=== PATIENT | female | born 1935 | race Hispanic/Latino ===

== ENCOUNTER 2016-09-30 18:13 | Inpatient (IN) | payer MEDICARE, MEDICAID ==
[2016-09-30 18:14] VITALS: BMI 30.2
--- NOTE | 2016-09-30 18:38 | ED PDOC ---
Arrival/HPI - General Chief Complaint: Lower Extremity Problem/Injury Time Seen by Provider: 09/30/16 18:25 Historian: Patient - History of Present Illness Narrative History of Present Illness (Text): 09/30/16 18:35 81yo female with PMHx of hypertension and Diabetes who present to ED with complaint of LLE pain x 2weeks. States she was seen by her PMD and started on antibiotics for cellulitis. she finished the antibiotics yesterday without relieve. states pain is worse today. She denies fever, trauma, SOB, diaphoresis , chest pain, recent travel, fever, chills, any other complaint. Past Medical History - Provider Review Nursing Documentation Reviewed: Yes - Past Medical History Past Medical History: No Previous - Cardiac Hx Cardiac Disorders: Yes Hx Hypertension: Yes - Pulmonary Hx Respiratory Disorders: No - Neurological Hx Neurological Disorder: No - HEENT Hx HEENT Disorder: Yes (legally blind) Hx Cataracts: Yes (left eye sx 5 yrs ago) - Renal Hx Renal Disorder: Yes Hx Kidney Stones: Yes (2006 right side kidney stone) - Endocrine/Metabolic Hx Diabetes Mellitus Type 1: Yes - Hematological/Oncological Hx Blood Transfusions: No Hx Blood Transfusion Reaction: No - Integumentary Other/Comment: unable to asess at present time patient can't roll over due to left hip fx - Musculoskeletal/Rheumatological Hx Musculoskeletal Disorders: Yes Hx Falls: Yes (yrs ago fx r shoulder and today) Hx Fractures: Yes (LEFT HIP FX,FX RIGHT SHOULDER WITH TITANIUM PLATE) Hx Unsteady Gait: Yes Other/Comment: ROTATOR CUFF SX - Gastrointestinal Hx Gastrointestinal Disorders: Yes Hx Gastroesophageal Reflux: Yes - Genitourinary/Gynecological Hx Hematuria: Yes - Psychiatric Hx Psychophysiologic Disorder: Yes Hx Anxiety: No (Pt denies) Hx Depression: No (Pt denies) Hx Substance Use: No - Past Surgical History Past Surgical History: No Previous - Surgical History Hx Cataract Extraction: Yes Hx Cardiac Catheterization: Yes Hx Coronary Stent: Yes Hx Eye Surgery: Yes Hx Orthopedic Surgery: Yes - Anesthesia Hx Anesthesia Reactions: No Hx Malignant Hyperthermia: No - Suicidal Assessment Feels Threatened In Home Enviroment: No Family/Social History - Physician Review Nursing Documentation Reviewed: Yes Family/Social History: Unknown Family HX Smoking Status: Never Smoked Hx Alcohol Use: No Hx Substance Use: No Allergies/Home Meds Allergies/Adverse Reactions: Allergies No Known Allergies Allergy (Verified 09/30/16 18:21) Home Medications: Home Meds Medication Instructions Recorded Confirmed Amlodipine Besylate 10 mg PO DAILY 04/21/15 09/30/16 Aspirin [Aspirin Chewable] 81 mg PO DAILY 04/21/15 09/30/16 Oxycodone Hydrochloride [Oxycodone] 30 mg PO Q6H 04/21/15 09/30/16 Pantoprazole Sodium [Protonix] 40 mg PO DAILY 04/21/15 09/30/16 Rosuvastatin Calcium [Crestor] 10 mg PO DAILY 04/21/15 09/30/16 Review of Systems - Physician Review All systems were reviewed & negative as marked: Yes - Review of Systems Constitutional: Normal Eyes: Normal ENT: Normal Respiratory: Normal Cardiovascular: Normal Gastrointestinal: Normal Genitourinary Female: Normal Musculoskeletal: Arthralgias (Left lower leg pain) Skin: Normal Neurological: Normal Endocrine: Normal Hemo/Lymphatic: Normal Psychiatric: Normal Physical Exam Vital Signs Reviewed: Yes Vital Signs Temp Pulse Resp BP Pulse Ox 09/30/16 22:07 98.2 F 78 19 148/70 99 09/30/16 18:25 157/68 H 09/30/16 18:22 98.5 F 83 15 97 Temperature: Afebrile Blood Pressure: Normal Pulse: Regular Respiratory Rate: Normal Appearance: Positive for: Well-Appearing, Non-Toxic, Comfortable Pain Distress: None Mental Status: Positive for: Alert and Oriented X 3 - Systems Exam Head: Present: Atraumatic, Normocephalic Pupils: Present: PERRL Extroacular Muscles: Present: EOMI Conjunctiva: Present: Normal Mouth: Present: Moist Mucous Membranes Neck: Present: Normal Range of Motion Respiratory/Chest: Present: Clear to Auscultation, Good Air Exchange. No: Respiratory Distress, Accessory Muscle Use Cardiovascular: Present: Regular Rate and Rhythm, Normal S1, S2. No: Murmurs Abdomen: Present: Normal Bowel Sounds. No: Tenderness, Distention, Peritoneal Signs Back: Present: Normal Inspection Upper Extremity: Present: Normal Inspection. No: Cyanosis, Edema Lower Extremity: Present: Normal Inspection, CALF TENDERNESS (Left calf), Normal ROM, Tenderness (Left distal lower leg), Erythema (Left lower lateral leg ), Neurovascularly Intact, Capillary Refill < 2 s. No: Edema, Rhys's Sign, Swelling, Deformity, Temperature Abnormalties Neurological: Present: GCS=15, CN II-XII Intact, Speech Normal Skin: Present: Warm, Dry, Normal Color. No: Rashes Psychiatric: Present: Alert, Oriented x 3, Normal Insight, Normal Concentration Medical Decision Making ED Course and Treatment: 10/01/16 01:10 PT presented for stated history. She was afebrile in ED. Lab was unremarkable. Per US tech Doppler was negative. Pt however had tenderness and erythema of her left LE. She failed outpt tx. Will be placed on OBS for IV abx. Case was DW Dr. lainez. Pt was placed on OBS. Rocephin and Zosyn was given in ED. - Lab Interpretations Lab Results: 09/30/16 18:45 09/30/16 18:45 Lab Results 09/30/16 18:45: WBC 6.9 D, RBC 4.67, Hgb 14.2, Hct 41.9, MCV 89.7, MCH 30.4, MCHC 33.9, RDW 13.6, Plt Count 229, MPV 9.0, Gran % 78.1 H, Lymph % (Auto) 13.6 L, [place] % (Auto) 7.3 H, Eos % (Auto) 0.9 L, Baso % (Auto) 0.1, Gran # 5.35, Lymph # 0.9 L, [place] # 0.5, Eos # 0.1, Baso # 0.01, Sodium 139, Potassium 4.0, Chloride 101, Carbon Dioxide 28, Anion Gap 14, BUN 15, Creatinine 0.6, Est GFR ( Amer) > 60, Est GFR (Non-Af Amer) > 60, Random Glucose 216 H, Calcium 9.8, Total Bilirubin 0.7, AST 32, ALT 9, Alkaline Phosphatase 148 H, Total Protein 8.4 H, Albumin 4.4, Globulin 4.0, Albumin/Globulin Ratio 1.1 - RAD Interpretation Radiology Orders: 09/30/16 18:34 DUPLEX LOWER EXTRM VEIN LEFT [US] Stat 09/30/16 19:52 TIBIA FIBULA LEFT [RAD] Stat - Medication Orders Current Medication Orders: Discontinued Medications Ceftriaxone Sodium (Rocephin 1 Gram Ivpb) 100 mls @ 200 mls/hr IVPB STAT STA PRN Reason: Protocol Stop: 09/30/16 20:22 Last Admin: 09/30/16 20:11 Dose: 200 MLS/HR eMAR Start Stop Document 09/30/16 20:11 RJR (Rec: 09/30/16 20:12 [id number]) Intravenous Solution Start Date 09/30/16 Start Time 20:12 End Date 09/30/16 End time 20:42 Total Infusion Time 30 Piperacillin Sod/Tazobactam Sod (Zosyn 3.375 In Ns 100ml) 100 mls @ 200 mls/hr IVPB STAT STA PRN Reason: Protocol Stop: 09/30/16 20:22 Last Admin: 09/30/16 20:30 Dose: 200 MLS/HR eMAR Start Stop Document 09/30/16 20:30 RJR (Rec: 09/30/16 20:30 R [id number]) Intravenous Solution Start Date 09/30/16 Start Time 20:30 End Date 09/30/16 End time 21:00 Total Infusion Time 30 Oxycodone/Acetaminophen (Percocet 5/325 Mg Tab) 1 tab PO STAT STA Stop: 09/30/16 19:49 Last Admin: 09/30/16 19:55 Dose: 1 TAB Disposition/Present on Arrival - Present on Arrival Any Indicators Present on Arrival: No History of DVT/PE: No History of Uncontrolled Diabetes: No Urinary Catheter: No History of Decub. Ulcer: No History Surgical Site Infection Following: None - Disposition Have Diagnosis and Disposition been Completed?: Yes Diagnosis: Cellulitis Disposition: HOSPITALIZED Disposition Time: 19:50 Patient Problems: Current Active Problems Problem Status Diagnosed Cellulitis Acute Condition: FAIR
[2016-09-30 19:23] LABS: ADD MANUAL DIFF? NO
[2016-09-30 19:28] LABS: BASO # 0.01 K/mm3 (0.0-2.0); BASO % 0.1 % (0.0-3.0); EOS # 0.1 (0.0-0.7); EOS % 0.9 % (1.5-5.0); GRAN # 5.35 (1.4-6.5); GRAN % 78.1 % (50.0-68.0); HEMATOCRIT 41.9 % (36.0-48.0); LYMPH # 0.9 (1.2-3.4); LYMPH % 13.6 % (22.0-35.0); MEAN CELL VOLUME 89.7 fL (80.0-105.0); MEAN CORPUSCULAR HEMOGLOBIN 30.4 pg (25.0-35.0); MEAN CORPUSCULAR HGB CONC 33.9 g/dl (31.0-37.0); MONO # 0.5 (0.1-0.6); MONO % 7.3 % (1.0-6.0); PLATELET COUNT 229 10^3/uL (120.0-450.0); RED CELL DISTRIBUTION WIDTH 13.6 % (11.5-14.5); WHITE BLOOD COUNT 6.9 10^3/ul (4.5-11.0)
[2016-09-30 19:43] LABS: ALB/GLOB RATIO 1.1 (1.1-1.8); ALKALINE PHOSPHATASE 148 U/L (38-133); ALT/SGPT 9 U/L (7-56); AST/SGOT 32 U/L (15-39); BILIRUBIN,TOTAL 0.7 mg/dL (0.2-1.3); BLOOD UREA NITROGEN 15 mg/dL (7-21); CALCIUM 9.8 mg/dL (8.4-10.5); CARBON DIOXIDE 28 mmol/L (21-33); GFR AFRICAN-AMERICAN > 60; GLUCOSE,RANDOM 216 mg/dL (70-110); SODIUM 139 mmol/L (132-148); TOTAL PROTEIN 8.4 g/dL (5.8-8.3)
[2016-09-30 19:45] LABS: CHLORIDE 101 mmol/L (98-107)
[2016-09-30] MEDS ORDERED: Oxycodone/Acetaminophen 5/325 mg Tab PO STA (19:48)
[2016-09-30] MEDS ORDERED: cefTRIAXone 1 gm 100 ML IVPB STA (19:53)
[2016-09-30] MEDS ORDERED: Piperacillin/Tazobact 3.375 gm 100 ML IVPB STA (19:53)
[2016-10-01 02:45] VITALS: RESP 18
[2016-10-01] MEDS ORDERED: Oxycodone/Acetaminophen 5/325 mg Tab PO STA (06:55)
--- NOTE | 2016-10-01 08:19 | US ---
PROCEDURE: Left lower extremity venous US HISTORY: Leg pain and swelling. Evaluate for DVT. PHYSICIAN(S): Liang Hernández MD. TECHNIQUE: Duplex sonography and color-flow Doppler with graded compression were used to evaluate the deep venous system of the left lower extremity. FINDINGS: The visualized deep venous system of the left lower extremity is sonographically normal and compressible. Normal wave forms and augmentation are seen. There is no sonographic evidence for deep venous thrombosis in the visualized segments of the left lower extremity. IMPRESSION: 1. No sonographic evidence for deep venous thrombosis in the visualized segments of the left lower extremity.
--- NOTE | 2016-10-01 09:28 | RAD ---
PROCEDURE: Radiographs of the left tibia and fibula. HISTORY: leg pain COMPARISON: None available. TECHNIQUE: Frontal and lateral views obtained. FINDINGS: BONES: No fracture. Diffuse osteopenia. JOINT SPACES: Probable tricompartmental osteoarthritis of the left knee. Limited evaluation. OTHER FINDINGS: None. IMPRESSION: No fracture. Probable osteoarthritis left knee. This is a limited evaluation of the knee. Diffuse osteopenia.
[2016-10-01 09:56] VITALS: O2SAT 96
[2016-10-01] MEDS ORDERED: Oxycodone/Acetaminophen 5/325 mg Tab PO PRN (14:20)
[2016-10-01 16:06] VITALS: BP 191/74; PULSE 75; TEMP 98.1
[2016-10-01] MEDS ORDERED: Insulin Lispro (humaLOG) LOW Coverage SC SCH (16:30)
[2016-10-01] MEDS ORDERED: Nystatin-Triamcinolone Cream(30 gm) TOP SCH (18:00)
[2016-10-01] MEDS ORDERED: Insulin Human NPH 1 UNITS/0.01 ML SC SCH (22:00)
[2016-10-02] MEDS ORDERED: Insulin Human NPH 1 UNITS/0.01 ML SC SCH (07:30)
[2016-10-02] MEDS ORDERED: Pantoprazole 40 mg EC Tab PO SCH (10:00)
[2016-10-02] MEDS ORDERED: Multivitamin Therapeutic Tab PO SCH (10:00)
--- NOTE | 2016-10-02 10:39 | HP ---
CHIEF COMPLAINT: Leg pain, cellulitis of the left leg. HISTORY OF PRESENT ILLNESS: This is an 81-year-old woman who called the office approximately 3 weeks ago with redness, swelling and heat in the left leg. She was started on antibiotics, seen later in a house call and continued an additional course of antibiotics because of cellulitis and erythema. S he came to the Emergency Room in the evening of 09/30 (yesterday evening) complaining of pain in the l eg and worries about cellulitis. In the ER, her white count was normal, ultrasound showed no evidenc e of DVT, x-ray of the tibia/fibula showed no fracture, but some arthritis in the knee, H and H was n ormal, chemistries were all right except for an elevated glucose. The patient was hemodynamically st able, but I would imagine it was because of pain and perhaps because of the late hour at that time, i t was felt she should be monitored overnight, so she stayed in the hospital and an initial dose of an tibiotic was given in the ER. Her chronic pain medications were not continued through the course of the day and she was monitored. PAST MEDICAL HISTORY: Significant for coronary artery disease, diabetes, hiatal hernia, osteoporosis . She had a horrible fall at home and fracture of the left hip and femur, for which she has chronic pain and takes chronic opiate analgesics. She also carries a diagnosis of anxiety, depression, COPD. PAST SURGICAL HISTORY: Significant for a hysterectomy and cholecystectomy. She does not smoke, never did. Does not drink alcohol, but drinks a few cups of coffee a day. ALLERGIES: She has no known allergies. HOME MEDICATIONS: Include Myrbetriq, amlodipine, Crestor, insulin for her diabetes, oxycodone 30 mg tablets. She no longer takes eyedrops, nabumetone, Celebrex or Boniva. REVIEW OF SYSTEMS: Otherwise, negative on multiple points. Only positive for the arthritis and hip pain as noted above. PHYSICAL EXAMINATION: GENERAL: The patient was seen in room 578 this evening, resting in bed, comfortable with a visitor at the bedside. She is awake, alert, clear, appropriate, wanting very much to go home. VITAL SIGNS: Stable. She is afebrile. HEENT: Unremarkable. Conjunctivae pink. NECK: Supple, without masses. Thyroid is not palpable. There is no JVD. LUNGS: Clear. HEART: Regular, not tachycardic. ABDOMEN: Overweight, soft, and nontender. EXTREMITIES: Show decreased DP and PT pulses, but they are present. There is no erythema of the lef t lower extremity. There is no pain to touch on manipulation. Ankle range of motion is fair given h er age 81. LABORATORIES: Unremarkable. 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 PLAN: Discharge to home after this overnight observation hospital visit with followup in the office, to resume prior medications. No known medicines given, no new analgesics given, no further need for antibiotics. Will follow as an outpatient in 1-2 weeks. Edil Del Rio MD cc: [id number] TT: 10/02/2016 10:38:51 en
== END 2016-10-01 21:18 | disposition home or self-care (01) | DRG 603 ==
LOC: ED 18:13 → ERH 19:53 → 5RSO 10-01 00:20 → OBSVTOIN 10-01 16:46
PROVIDERS: ADMIT Internal Medicine; ATTEND Internal Medicine
DX: L03.116 Cellulitis of left lower limb (principal); J44.9 Chronic obstructive pulmonary disease, unspecified; E10.9 Type 1 diabetes mellitus without complications; I25.10 Atherosclerotic heart disease of native coronary artery without angina pectoris; M17.12 Unilateral primary osteoarthritis, left knee; M81.0 Age-related osteoporosis without current pathological fracture; K44.9 Diaphragmatic hernia without obstruction or gangrene; F32.9 Major depressive disorder, single episode, unspecified; F41.9 Anxiety disorder, unspecified; G89.4 Chronic pain syndrome; S72.002S Fracture of unspecified part of neck of left femur, sequela; W19.XXXS Unspecified fall, sequela; Z79.891 Long term (current) use of opiate analgesic; G89.29 Other chronic pain; H54.8 Legal blindness, as defined in USA; I10 Essential (primary) hypertension; K21.9 Gastro-esophageal reflux disease without esophagitis; Z79.899 Other long term (current) drug therapy; Z95.5 Presence of coronary angioplasty implant and graft

== ENCOUNTER 2018-05-28 07:02 | Inpatient (IN) | payer MEDICARE, MEDICAID ==
[2018-05-28 07:08] VITALS: BMI 28.8
--- NOTE | 2018-05-28 07:19 | ED PDOC ---
Arrival/HPI - General Chief Complaint: Chest Pain Time Seen by Provider: 05/28/18 07:11 Historian: Patient - History of Present Illness Narrative History of Present Illness (Text): 05/28/18 07:19 A 82 year old female, whose past medical history includes a stent, hypertension and diabetes, presents to the emergency department complaining of midsternal chest pain since earlier this morning. Patient reports she went to the bathroom this morning and may have stood up too fast. Patient notes taking aspirin full dose prior to arrival. Patient denies any fever, shortness of breath, diaphoresis, or any other complaints. PMD: Dr. Del Rio Finance Assistant: Dr. Long Time/Duration: 1-3 hours (earlier this morning) Symptom Onset: Sudden Symptom Course: Unchanged Activities at Onset: Light Context: Home Past Medical History - Provider Review Nursing Documentation Reviewed: Yes - Infectious Disease Hx of Infectious Diseases: None - Reproductive Menopause: Yes - Past Medical History Past Medical History: No Previous - Cardiac Hx Hypertension: Yes Other/Comment: 1 Cardiac stent 2017 - Pulmonary Hx Respiratory Disorders: No - Neurological Hx Neurological Disorder: No - HEENT Hx HEENT Disorder: Yes (legally blind) Hx Cataracts: Yes (left eye sx 5 yrs ago) - Renal Hx Renal Disorder: Yes Hx Kidney Stones: Yes (2006 right side kidney stone) - Endocrine/Metabolic Hx Endocrine Disorders: Yes Hx Diabetes Mellitus Type 1: Yes - Hematological/Oncological Hx Blood Disorders: No - Integumentary Hx Dermatological Disorder: No - Musculoskeletal/Rheumatological Hx Falls: Yes - Gastrointestinal Hx Gastrointestinal Disorders: Yes Hx Gastroesophageal Reflux: Yes - Genitourinary/Gynecological Hx Genitourinary Disorders: Yes Hx Hematuria: Yes - Psychiatric Hx Psychophysiologic Disorder: Yes Hx Substance Use: No - Past Surgical History Past Surgical History: No Previous - Surgical History Hx Cardiac Catheterization: Yes - Anesthesia Hx Anesthesia Reactions: No Hx Malignant Hyperthermia: No - Suicidal Assessment Feels Threatened In Home Enviroment: No Family/Social History - Physician Review Nursing Documentation Reviewed: Yes Family/Social History: No Known Family HX Smoking Status: Never Smoked Hx Alcohol Use: No Hx Substance Use: No Allergies/Home Meds Allergies/Adverse Reactions: Allergies No Known Allergies Allergy (Verified 09/30/16 18:21) Home Medications: Home Meds Medication Instructions Recorded Confirmed RX: Oxycodone Hydrochloride 30 mg PO Q6H 10/18/15 11/24/18 [Oxycodone] RX: Pantoprazole Sodium [Protonix] 40 mg PO DAILY 04/21/15 05/28/18 RX: Rosuvastatin Calcium [Crestor] 10 mg PO DAILY 04/21/15 05/28/18 Diclofenac Sodium [Diclofenac 100 mg PO DAILY 05/28/18 05/28/18 Sodium ER] Insulin Human NPH/Reg [humulin 20 ml SC ACBHS 05/28/18 05/28/18 70/30 70 U/Ml-30 U/Ml 10 Ml] RX: Insulin Human NPH [Humulin N] 30 units SC ACB 05/28/18 05/28/18 Review of Systems - Physician Review All systems were reviewed & negative as marked: Yes - Review of Systems Constitutional: absent: Fevers Endocrine: absent: Diaphoresis Physical Exam - Physical Exam Narrative Physical Exam (Text): 05/28/18 07:23 Constitutional: No acute distress. Head: Normocephalic. Atraumatic. Eyes: PERRL. ENT: Moist mucous membranes. Neck: Supple. Cardiovascular: Regular rate. Chest: No tenderness. Respiratory: Clear to auscultation bilaterally. Musculoskeletal: No tenderness or swelling of extremities. Skin: No rash. Neurologic: Alert, no focal deficit. Vital Signs Reviewed: Yes Vital Signs Temp Pulse Resp BP Pulse Ox 05/28/18 07:10 98.4 F 86 18 176/80 H 96 05/28/18 07:03 98.4 F 92 H 18 176/80 H 97 Temperature: Afebrile Blood Pressure: Hypertensive Pulse: Regular Respiratory Rate: Normal Appearance: Positive for: Well-Appearing, Non-Toxic Mental Status: Positive for: Alert and Oriented X 3 Medical Decision Making ED Course and Treatment: 05/28/18 07:25 Impression: 82 year old female with chest pain. Plan: -- Labs -- CBC -- COAGs -- Chest X-ray -- Reassess and disposition Prior Visits: Notes and results from previous visits were reviewed. Progress Notes: 05/28/18 07:25 EKG: Ordered, reviewed, and independently interpreted the EKG. Rate : 90 BPM Rhythm : NSR Interpretation : No ST-segment elevations or depressions. Dr. Del Rio accepts patient to his service. - Scribe Statement The provider has reviewed the documentation as recorded by the Luis Warren All medical record entries made by the Davidibakanksha were at my direction and personally dictated by me. I have reviewed the chart and agree that the record accurately reflects my personal performance of the history, physical exam, medical decision making, and the department course for this patient. I have also personally directed, reviewed, and agree with the discharge instructions and disposition. Disposition/Present on Arrival - Present on Arrival Any Indicators Present on Arrival: No History of DVT/PE: No History of Uncontrolled Diabetes: No Urinary Catheter: No History of Decub. Ulcer: No History Surgical Site Infection Following: None - Disposition Have Diagnosis and Disposition been Completed?: Yes Diagnosis: Chest pain Disposition: HOSPITALIZED Disposition Time: 08:14 Patient Plan: Observation, Telemetry Condition: FAIR
[2018-05-28 07:51] LABS: BASO # 0.03 K/mm3 (0.0-2.0); BASO % 0.3 % (0.0-3.0); EOS # 0.1 (0.0-0.7); EOS % 0.7 % (1.5-5.0); GRAN # 7.93 (1.4-6.5); HEMOGLOBIN 12.3 g/dL (12.0-16.0); LYMPH # 0.9 (1.2-3.4); LYMPH % 9.8 % (22.0-35.0); MEAN CELL VOLUME 85.2 fl (80.0-105.0); MEAN CORPUSCULAR HEMOGLOBIN 27.1 pg (25.0-35.0); MEAN CORPUSCULAR HGB CONC 31.8 g/dl (31.0-37.0); MONO # 0.6 (0.1-0.6); MONO % 6.2 % (1.0-6.0); RBC 4.54 10^6/uL (3.5-6.1); RED CELL DISTRIBUTION WIDTH 13.8 % (11.5-14.5); WHITE BLOOD COUNT 9.6 10^3/uL (4.5-11.0)
[2018-05-28 07:55] LABS: INR 0.93; PARTIAL THROMBOPLASTIN TIME 24.7 Seconds (25.1-36.5); PROTHROMBIN TIME 10.7 SECONDS (9.4-12.5)
[2018-05-28 07:58] LABS: ALB/GLOB RATIO 1.2 (1.1-1.8); ALT/SGPT 16 U/L (7-56); AST/SGOT 25 U/L (14-36); BLOOD UREA NITROGEN 26 mg/dL (7-21); CALCIUM 9.1 mg/dL (8.4-10.5); GFR NON-AFRICAN AMERICAN > 60
[2018-05-28 08:09] LABS: TROPONIN I 0.03 ng/mL
[2018-05-28] MEDS ORDERED: OXYCODONE HYDROCHLORIDE 30 MG PO SCH (12:30)
--- NOTE | 2018-05-28 13:36 | RAD ---
HISTORY: chest pain COMPARISON: Chest x-ray performed 08/06/15 TECHNIQUE: Chest, one view. FINDINGS: Examination limited by habitus and hypoinflation. LUNGS: Bilateral hilar prominence. No focal consolidation. Please note that chest x-ray has limited sensitivity for the detection of pulmonary masses. PLEURA: No significant pleural effusion identified. No definite pneumothorax . CARDIOVASCULAR: Partially obscured cardiomegaly. Atherosclerotic calcification present. OSSEOUS STRUCTURES: Partially imaged right shoulder arthroplasty. VISUALIZED UPPER ABDOMEN: Unremarkable. OTHER FINDINGS: None. IMPRESSION: Partially obscured cardiomegaly. Bilateral hilar prominence. Hypoinflation.
[2018-05-28] MEDS: Enoxaparin 80 mg Syringe SC SCH ×2 (15:06→22:19)
[2018-05-28] MEDS: oxyCODONE 30 mg Immediate Release Tab PO SCH (15:07)
[2018-05-28] MEDS: Insulin Human NPH 1 UNITS/0.01 ML SC SCH (15:13)
[2018-05-28] MEDS: Pantoprazole 40 mg EC Tab PO SCH (15:13)
[2018-05-28] MEDS: DICLOFENAC SODIUM 100 MG PO SCH (17:43)
--- NOTE | 2018-05-28 21:16 | CON ---
DATE OF CONSULTATION: 05/28/2018 REASON FOR CONSULTATION: Chest pain. HISTORY OF PRESENT ILLNESS: The patient is an 82-year-old female who has a history of hypertension, diabetes mellitus, history of coronary artery stenting in 03/2018 according to the patient, presents because of recently having chest pain, non-radiating. The patient denies any associated diaphoresis or shortness of breath. Denies any dizziness or syncope. The patient stated that she has been compliant with her medications. SOCIAL HISTORY: Nonsmoker and nondrinker. MEDICATIONS: Aspirin 81 mg once a day, Imdur 60 mg once a day, Lipitor 40 g once a day, Lopressor 50 mg twice a day, Norvasc 10 mg once a day, Plavix 75 mg once a day, Protonix 40 mg p.o. once a day. REVIEW OF SYSTEMS: No nausea or vomiting. No fever or chills. PHYSICAL EXAMINATION: GENERAL: The patient is an elderly female who does not appear to be in any distress. VITAL SIGNS: Blood pressure 139/58, heart rate 59, temperature 98.7, respirations 18. HEENT: Normocephalic. NECK: No JVD. CHEST: Clear. HEART: S1 and S2 regular. ABDOMEN: Soft. EXTREMITIES: No edema. LABORATORY DATA: Today's hemoglobin and hematocrit 12.3 and 38.7. White count and platelet count are within normal limits. INR 0.93. PTT 24.7. SMA-7: Sodium 138, potassium 4.2, chloride 108, CO2 of 23, glucose 197, BUN 26, creatinine 0.7. Troponin 0.03. EKG revealed sinus rhythm at a rate of [address]-segment changes. Chest x-ray: Unremarkable except for prominent hilar vasculature. Echocardiogram in 01/2018 revealed normal ejection fraction in the range of 55% to 60% with mild concentric LVH, trace aortic insufficiency, and estimated right ventricular systolic pressure at 59 mmHg. In 01/2018, the patient's Lexiscan was done. However, no nuclear imaging report is available on the [employer] database. ASSESSMENT: 1. Chest pain, rule out myocardial infarction. 2. History of recent coronary stenting in 03/2018 most likely at Hospital as [employer] database does not show that procedure being done at [facility]. 3. Hypertension. 4. Diabetes mellitus. RECOMMENDATIONS: Continue aspirin 81 mg once a day, Imdur 60 mg once a day, Lipitor 20 mg once a day, Lopressor 50 mg twice a day, Norvasc 10 mg once a day, Plavix 75 mg once a day. Monitor daily EKGs and serial cardiac enzymes. The case will be discussed with Dr. Long on Wednesday morning as cardiac catheterization may be immediate. Say Perdomo MD
[2018-05-28] MEDS ORDERED: Insulin Human NPH/Reg 70/30 Vial(3 ml) SC SCH (22:00)
[2018-05-28] MEDS: Insulin Human NPH/Reg 70/30 Vial(3 ml) SC SCH (22:45)
[2018-05-29] MEDS: oxyCODONE 30 mg Immediate Release Tab PO SCH ×6 (00:12→23:44)
--- NOTE | 2018-05-29 07:22 | CARD ---
APPROVED REPORT Date of service: 05/28/2018 EKG Measurement Heart [id number] <Conclusion> Normal sinus rhythm Improved repolarization c/w ECG 05/28/18
[2018-05-29 07:56] LABS: HEMOGLOBIN 10.9 g/dL (12.0-16.0); MEAN CELL VOLUME 84.5 fl (80.0-105.0); MEAN CORPUSCULAR HEMOGLOBIN 26.8 pg (25.0-35.0); MEAN CORPUSCULAR HGB CONC 31.7 g/dl (31.0-37.0); MEAN PLATELET VOLUME 9.1 fl (7.0-11.0); RBC 4.07 10^6/uL (3.5-6.1); RED CELL DISTRIBUTION WIDTH 13.9 % (11.5-14.5); WHITE BLOOD COUNT 6.8 10^3/uL (4.5-11.0)
[2018-05-29] MEDS: Insulin Human NPH/Reg 70/30 Vial(3 ml) SC SCH (08:19)
[2018-05-29] MEDS: Insulin Human NPH 1 UNITS/0.01 ML SC SCH (08:24)
[2018-05-29 08:33] LABS: ALB/GLOB RATIO 1.2 (1.1-1.8); ALBUMIN 3.5 g/dL (3.0-4.8); ALT/SGPT 13 U/L (7-56); AST/SGOT 63 U/L (14-36); BLOOD UREA NITROGEN 20 mg/dL (7-21); GFR NON-AFRICAN AMERICAN > 60; TROPONIN I 4.17 ng/mL
[2018-05-29] MEDS: Enoxaparin 80 mg Syringe SC SCH ×2 (09:30→21:03)
[2018-05-29] MEDS: DICLOFENAC SODIUM 100 MG PO SCH (09:30)
[2018-05-29] MEDS: Pantoprazole 40 mg EC Tab PO SCH (09:31)
--- NOTE | 2018-05-29 10:28 | CARD ---
APPROVED REPORT Date of service: 05/28/2018 EKG Measurement Heart [id number] <Conclusion> Sinus rhythm STTW changes c/w ischemia, new Prolonged QTc
--- NOTE | 2018-05-29 11:39 | PN ---
DATE: 05/29/2018 SUBJECTIVE: The patient is an 82-year-old female with a known history of insulin-dependent diabetes mellitus, gastroesophageal reflux, history of depression in the distant past, history of coronary artery disease, status post PTCA performed in 03/2018, who was admitted yesterday to the [facility] after experiencing chest pain, which was not relieved by Nitrolingual spray, sublingual nitroglycerin tablets x2, and aspirin 325 mg x1. The patient presented to the emergency room, was evaluated and admitted. Initially, her troponins were 0.03. Followup troponins were markedly elevated to 3.25, peaked at 8.06, and then subsided to 4.16. When seen today, the patient is lying in bed, awake, alert and oriented. She was anticipating discharge to home soon. However, I informed the patient of her troponin levels and informed her that she would be required to stay a bit longer for further cardiac evaluation. PHYSICAL EXAMINATION: Her lungs are clear anteriorly. Heart is regular. Abdomen is soft and nontender. LABORATORY DATA: Serum chemistries and CBC are unremarkable. ASSESSMENT AND PLAN: The case is to be discussed with Cardiology and probable arrangements for coronary catheterization to be done in the near future. Stas Del Rio MD
--- NOTE | 2018-05-29 12:01 | HP ---
DATE OF EXAM: 05/29/2018 HISTORY OF PRESENT ILLNESS: The patient is an 82-year-old female who is admitted to the emergency room with chest pain. The patient has developed a chest pain while at home. She treated herself with a sublingual nitroglycerin spray followed by two sublingual nitroglycerin tablets followed by one 325 mg aspirin. As the pain persisted, the patient called for the squad, was brought to the emergency room and is admitted. The patient denies any radiation of the chest pain, describes it as heaviness over the sternum. She does admit to some lightheadedness and nausea; however, denies diaphoresis. PAST MEDICAL HISTORY: The patient is known to have a history of coronary artery disease. PAST SURGICAL HISTORY: She is status post PTCA few months ago. She has a history of hypertension, insulin-dependent diabetes mellitus and renal calculi. She had surgical repair of a hip fracture about 2 years ago. She is status post surgical hip replacement. SOCIAL HISTORY: She never smoked. She is a nonalcoholic drinker. ALLERGIES: SHE HAS NO KNOWN MEDICAL ALLERGIES. MEDICATIONS: At the time of admission, her medications included oxycodone 30 mg every 6 hours for chronic low back pain, Protonix 40 mg once a day, Crestor 10 mg once a day, diclofenac 100 mg once a day, NPH insulin as directed 30 units subcutaneously twice a day. REVIEW OF SYSTEMS: Also, positive for chronic bilateral leg pain. The patient ambulates in her home with the use of a walker. She says her leg pain is chronic. When I last saw the patient about a month ago in a home visit, we had decided on testing for peripheral vascular disease because of pain at rest. The patient is worried and concerned as she found this test painful when it was performed once in the past. The patient is also quite nervous and upset as her son is planning to go for open heart surgery for valve replacement, and the patient is very concerned for him. PHYSICAL EXAMINATION: VITAL SIGNS: The blood pressure is 176/80, heart rate is 92 and she is afebrile. HEENT: Examination of the head, eyes, ears, nose and throat are unremarkable. NECK: Supple with no lymphadenopathy. No goiter. LUNGS: Clear to auscultation and percussion. HEART: Sounds are regular. No murmurs appreciated. ABDOMEN: Soft and nontender with no organomegaly. EXTREMITIES: Free of cyanosis, clubbing or edema. NEUROLOGIC: The patient is awake, alert and oriented with no focal neurological signs. LABORATORY STUDIES: Show the white blood cell count to be 6.8, hemoglobin and hematocrit are 10.9 and 34.4, platelet count is 212,000. Sodium is 139, potassium is 3.8, blood urea nitrogen is 20, creatinine is 0.6, glucose is 61. Her troponin is 0.03. PLAN: So the patient is to be admitted with chest pain, history of coronary artery disease status post PTCA x2-3 months ago. The patient will be reevaluated in the morning. Cardiology consult is requested. Stas Del Rio MD
--- NOTE | 2018-05-29 18:34 | PN ---
DATE: 05/29/2018 SUBJECTIVE: The patient denies any chest pain or shortness of breath at this time. PHYSICAL EXAMINATION: VITAL SIGNS: Blood pressure 124/54, heart rate 66, respirations 18, temperature 98.3. HEENT: Normocephalic. CHEST: Clear. HEART: S1, S2 regular. EXTREMITIES: No edema. LABORATORY DATA: Today's SMA-7: Sodium 139, potassium 3.8, chloride 109, CO2 of 27, glucose 61, BUN 20, creatinine 0.6. Today's troponin 4.17 and the latest troponin yesterday was 8.06. ASSESSMENT: 1. Hhl-AH-gbjeskgiz myocardial infarction. 2. History of recent coronary stenting in March at [facility]. 3. Diabetes mellitus. 4. Hypertension. RECOMMENDATIONS: Continue aspirin 81 mg once a day, Lopressor 50 mg once a day, Lipitor 40 g once a day, Imdur 60 mg once a day, Norvasc 10 mg once a day, start therapeutic subcutaneous Lovenox 70 mg twice a day, Plavix 75 mg once a day. The patient will be kept n.p.o. after midnight for cardiac catheterization with a possible atrial intervention by Dr. Montano tomorrow alupe. Say Perdomo MD
[2018-05-30] MEDS: oxyCODONE 30 mg Immediate Release Tab PO SCH ×4 (06:03→18:52)
--- NOTE | 2018-05-30 07:39 | CP.PCM.PN ---
Subjective - Date & Time of Evaluation Date of Evaluation: 05/30/18 Time of Evaluation: 06:30 - Subjective Subjective: Awake, alert, no distress Reason for consultation and follow up:Cardiac evaluation of midsternal chast pain, history of coronary artery disease post cardiac stent, hypertension, diabetes. Seen and examined by me and Dr. Montano Objective - Vital Signs/Intake and Output Vital Signs (last 24 hours): Temp Pulse Resp BP Pulse Ox 97.5 F L 54 L 18 145/64 95 05/30/18 06:00 05/30/18 06:00 05/30/18 06:00 05/30/18 06:00 05/30/18 06:00 Intake and Output: 05/30/18 05/30/18 06:59 18:59 Intake Total 840 Output Total 150 Balance 690 - Medications Medications: Current Medications Alprazolam (Xanax) 1 mg PO Q6 PRN; Protocol PRN Reason: Anxiety Amlodipine Besylate (Norvasc) 10 mg PO DAILY [facility] Last Admin: 05/29/18 09:31 Dose: 10 mg Aspirin (Ecotrin) 81 mg PO DAILY [facility] Last Admin: 05/29/18 09:30 Dose: 81 mg Atorvastatin Calcium (Lipitor) 40 mg PO DIN [facility] Last Admin: 05/29/18 17:36 Dose: 40 mg Clopidogrel Bisulfate (Plavix) 75 mg PO DAILY [facility] Last Admin: 05/29/18 09:31 Dose: 75 mg Enoxaparin Sodium (Lovenox) 70 mg SC Q12 [facility]; Protocol Last Admin: 05/29/18 21:03 Dose: 70 mg Insulin Human NPH (Humulin N) 30 units SC ACB [facility] Last Admin: 05/29/18 08:24 Dose: 30 u Isosorbide Mononitrate (Imdur) 60 mg PO DAILY [facility] Last Admin: 05/29/18 09:30 Dose: 60 mg Metoprolol Tartrate (Lopressor) 50 mg PO BRKDIN [facility] Last Admin: 05/29/18 17:37 Dose: 50 mg Non-Formulary Medication (Diclofenac Sodium [Diclofenac Sodium Er]) 100 mg PO DAILY [facility] Last Admin: 05/29/18 09:30 Dose: Not Given Oxycodone HCl (Oxycodone Immediate Release Tab) 30 mg PO Q6H [facility] Last Admin: 05/30/18 06:03 Dose: Not Given Pantoprazole Sodium (Protonix Ec Tab) 40 mg PO DAILY [facility] Last Admin: 05/29/18 09:31 Dose: 40 mg - Labs Labs: 05/29/18 07:00 05/29/18 07:00 PT 10.7 SECONDS (9.4-12.5) 05/28/18 07:30 INR 0.93 05/28/18 07:30 APTT 24.7 Seconds (25.1-36.5) L 05/28/18 07:30 - Constitutional Appears: Non-toxic, No Acute Distress - Head Exam Head Exam: NORMAL INSPECTION, NORMOCEPHALIC - Eye Exam Eye Exam: Normal appearance Pupil Exam: NORMAL ACCOMODATION - ENT Exam ENT Exam: Mucous Membranes Moist, Normal Exam - Respiratory Exam Respiratory Exam: Clear to Ausculation Bilateral - Cardiovascular Exam Cardiovascular Exam: Bradycardia, +S1, +S2 Additional comments: Telemetry SB 40-50's denies chest pain or shortness of breath - GI/Abdominal Exam GI & Abdominal Exam: Soft, Normal Bowel Sounds - Extremities Exam Extremities Exam: Full ROM, Normal Capillary Refill - Neurological Exam Neurological Exam: Alert, Awake, Oriented x3 - Psychiatric Exam Psychiatric exam: Normal Affect, Normal Mood - Skin Skin Exam: Dry, Normal Color, Warm Assessment and Plan - Assessment and Plan (Free Text) Assessment: An 82 year old female who came in to the ER due to midsternal chest pain, no radiating.History of coronary artery disease post cardiac stent, last March at [facility], hypertension, diabetes. Recent ECHO on 01/26/18 showed LV size normal, Mild concentric LV hyperthropy,Proximal septal thickening,LVEF 55-60%,Trace aortic regurgitation,Mild mitral regurgitation, moderate tricuspid regurgitation, RVSP 59 mmHg, moderate pulmonary hypertension. No pericardial effusion. Positive troponin. NSTEMI. Plan: For cardiac cath today Kept NPO Denies chest pain or shortness of breath Blood pressure controlled Heart rate Sinus bradycardia Will hold Lopressor for now On Norvasc 10 mg daily,ASA 81 mg daily,Lipitor 40 mg daily, Plavix 75 mg daily, Lovenox 70 mg every 12 hours,Imdur 60 mg daily, Lopressor 50 mg BID Continue current treatment Continue current medications Will follow up Chart reviewed Plan and treatment discussed with Dr. Montano
--- NOTE | 2018-05-30 07:43 | CARD ---
APPROVED REPORT Date of service: 05/28/2018 EKG Measurement Heart [id number] <Conclusion> Normal sinus rhythm Q in lll Normal ECG
--- NOTE | 2018-05-30 08:12 | CARD ---
APPROVED REPORT Date of service: 05/29/2018 EKG Measurement Heart [id number] [id number] <Conclusion> Normal sinus rhythm Q in lll No change
[2018-05-30] MEDS: Insulin Human NPH 1 UNITS/0.01 ML SC SCH (08:50)
[2018-05-30] MEDS ORDERED: Lidocaine 2% Inj (20ml) ONE (09:16)
[2018-05-30] MEDS ORDERED: Iodixanol 320 MG/ML 200 ML BOTTLE IV ONE (09:16)
[2018-05-30] MEDS ORDERED: Midazolam 2 MG/2 ML VIAL ONE ×2 (09:43→10:07)
[2018-05-30] MEDS ORDERED: Eptifibatide 20 mg/10mL Inj IVP ONE (09:57)
[2018-05-30] MEDS ORDERED: Sodium Chloride 0.9% 1,000 ML IV SCH (11:15)
[2018-05-30] MEDS: Enoxaparin 80 mg Syringe SC SCH (11:21)
[2018-05-30] MEDS: DICLOFENAC SODIUM 100 MG PO SCH (11:21)
[2018-05-30] MEDS: Pantoprazole 40 mg EC Tab PO SCH (11:39)
[2018-05-30 11:59] LABS: BASO # 0.01 K/mm3 (0.0-2.0); BASO % 0.2 % (0.0-3.0); EOS # 0.1 (0.0-0.7); EOS % 2.3 % (1.5-5.0); GRAN # 4.45 (1.4-6.5); GRAN % 71.8 % (50.0-68.0); HEMOGLOBIN 10.7 g/dL (12.0-16.0); LYMPH % 15.5 % (22.0-35.0); MEAN CELL VOLUME 85.6 fl (80.0-105.0); MEAN CORPUSCULAR HGB CONC 31.6 g/dl (31.0-37.0); MONO # 0.6 (0.1-0.6); MONO % 10.2 % (1.0-6.0); RBC 3.96 10^6/uL (3.5-6.1); WHITE BLOOD COUNT 6.2 10^3/uL (4.5-11.0)
[2018-05-30 12:10] LABS: BLOOD UREA NITROGEN 16 mg/dL (7-21); CALCIUM 8.6 mg/dL (8.4-10.5); GFR NON-AFRICAN AMERICAN > 60
--- NOTE | 2018-05-30 12:11 | CPOSTOP ---
CARDIOVASCULAR LAB POSTPROCEDURE NOTE DATE: 05/30/2018 PHYSICIAN: Dr. Fabi Montano. PLANNING AIDE: Sonia Vasquez, laboratory mechanical technician. TYPE OF ANESTHESIA: Moderate conscious sedation, total 3 mg of Versed and 150 of fentanyl given periodically. Started 1 mg of Versed and 50 of fentanyl. PRE-PROCEDURE DIAGNOSES: Non-ST elevated myocardial infarction, acute coronary syndrome status post multiple percutaneous transluminal coronary angioplasty. PROCEDURE PERFORMED: 1. Left heart catheterization. 2. Attempted percutaneous transluminal coronary angioplasty of circumflex. 3. PRU test (155). FINDINGS: Ostial circumflex 95%, mid circumflex 100%occluded. FINAL DIAGNOSIS: Single vessel disease, circumflex totally occluded, well collateralized from RCA and could not cross ostial circumflex. POST PROCEDURE CONDITION: The post procedure patient condition is stable. VASCULAR ACCESS SITE: Right femoral artery. CLOSURE DEVICE: Angio-Seal. TOTAL RADIATION DOSE: 03525.10 milligray unit. TOTAL FLUORO TIME: 20.1 minute. Sarina Montano MD
[2018-05-30 14:12] LABS: BASO # 0.01 K/mm3 (0.0-2.0); BASO % 0.1 % (0.0-3.0); EOS # 0.1 (0.0-0.7); GRAN # 5.43 (1.4-6.5); GRAN % 80.9 % (50.0-68.0); HEMOGLOBIN 10.8 g/dL (12.0-16.0); LYMPH # 0.7 (1.2-3.4); LYMPH % 10.4 % (22.0-35.0); MEAN CORPUSCULAR HEMOGLOBIN 27.1 pg (25.0-35.0); MEAN CORPUSCULAR HGB CONC 31.9 g/dl (31.0-37.0); MEAN PLATELET VOLUME 8.8 fl (7.0-11.0); MONO # 0.5 (0.1-0.6); MONO % 7.6 % (1.0-6.0); RBC 3.99 10^6/uL (3.5-6.1); WHITE BLOOD COUNT 6.7 10^3/uL (4.5-11.0)
[2018-05-30 14:22] LABS: BLOOD UREA NITROGEN 16 mg/dL (7-21); CALCIUM 8.5 mg/dL (8.4-10.5); GFR NON-AFRICAN AMERICAN > 60
[2018-05-30] MEDS ORDERED: A C T ELECTRONICS XX ONE (15:03)
--- NOTE | 2018-05-30 15:26 | PN ---
DATE: 05/30/2018 REASON FOR CONSULTATION: Followup non-ST segment myocardial infarction, coronary artery disease, status post PTCA of RCA on 05/27/2015, after non-STEMI, for the fractured hip and the patient was admitted for fractured hip. HISTORY: Postop course was complicated by non-STEMI where the patient underwent PTCA with drug eluting stent in mid and distal RCA and fem balloon angioplasty of proximal RCA for in-stent stenosis dated 05/26/2015 and then the patient was scheduled for left main stent but the patient did not go. Recently the patient went into March for left main stent. Admitted yesterday with non-STEMI, trending down. The patient this morning was taken to the label drier and PTCA of the circumflex was attempted with circumflex ostia shows 90% stenosis with mid to distal side was totally occluded though is very well collateralized from RCA. PTCA of the stent was attempted but unable to cross probably is impinge from the left main stent. So medical treatment recommended. Puncture site is closed with Angio-Seal. This note is an addition to dictated by nurse practitioner. The plan is to beta maira, nitrates, and also PRU test was done and found to be 155 and the patient is sensitive to Plavix, we will continue Plavix. Thank you Dr. Del Rio for providing the opportunity in taking care of the patient, Vince Cohen. Sarina Montano MD
--- NOTE | 2018-05-30 15:48 | CARD ---
APPROVED REPORT Date of service: 05/30/2018 Procedure(s) performed: Left Heart Catheterization PTCA with Stenting of Cx attemped... unsuccessful PRU .... 155 ( pt is sensitve with plavix,ok to continue Plavix) HISTORY The patient is a 82 year-old female with a history of : previous TN (> 7 days), diabetes mellitus with insulin treatment , previous diagnostic cath, previous PCI (The PCI date was 05/27/2015/ and 03/2018), hypertension , dyslipidemia , Hx of recent PCI of left main with impella at [facility] on 03/2018 and prior to that PCTa of RCA in 05/27/2015 after NSTEMI, ebony-op hip surgery, who admitted with NSTEMI.. INDICATION The indication(s) include : non-STEMI . CASE TECHNIQUE The patient was brought urgently to the Cardiac Catheterization Laboratory in a fasting state and was prepped and draped in a sterile manner. The right femoral groin was infiltrated with 2% Lidocaine subcutaneous anesthesia. A 6 Fr x 11 cm Yuki sheath was inserted into the right femoral artery without difficulty. Coronary angiography was performed using coronary diagnostic catheters. The left coronary system was accessed and visualized with a Diagnostic ,5 Fr JL 4 catheter. The right coronary system was accessed and visualized with a Diagnostic ,5 Fr JR 4 catheter. The left ventricle was accessed and visualized with a 5F PIGTAIL 145 CATH DXT 110 CM catheter. Left ventricular/Aortic Valve gradient assessed on pullback. Left ventriculogram was performed in CERVANTES projection. Closure device was deployed with a 6 Fr Angio-Seal without any complications. The patient tolerated the procedure well and there were no complications associated with the procedure. Vessel Analysis The patient's coronary anatomy is right dominant. The left main coronary artery is a medium size vessel with diffuse calcification noted throughout this vessel and without significant stenosis. patent stent The left main bifurcates to the left anterior descending and circumflex. The left anterior descending artery is a medium size vessel with diffuse calcification noted throughout this vessel and without significant stenosis. patent stent in Proximal and Mid LAD The first diagonal branch is a small size vessel with diffuse calcification noted throughout this vessel and without significant stenosis. The second diagonal branch is a small size vessel with diffuse calcification noted throughout this vessel and without significant stenosis. The third diagonal branch is a small size vessel with diffuse calcification noted throughout this vessel and without significant stenosis. The circumflex artery is a medium size vessel with diffuse calcification noted throughout this vessel and with significant stenosis. There is a 95% stenosis in the ostial segment. and mid Cx is occluded The first obtuse marginal branch is a medium size vessel with diffuse calcification noted throughout this vessel and with significant stenosis. There is a 100% stenosis in the proximal segment. but collateralized from LAD and RCA The right coronary artery is a medium size vessel with intimal irregularities and without significant stenosis. patent stents in proximal, Mid and distal RCA The right posterior descending artery is a medium size vessel with diffuse calcification noted throughout this vessel and without significant stenosis. The right posterolateral branch is a medium size vessel with diffuse calcification noted throughout this vessel and without significant stenosis. Left Ventricle The left ventricle is normal in size with nilda contractility. Ischemic cardiomyopathy. The left ventricular ejection fraction is estimated to be 55%. The left ventricular end diastolic pressure is 12 mmHg. There was no gradient across the aortic valve upon pullback. PCI Technique Lesion Anticoagulation was achieved with Heparin. Percutaneous coronary intervention was performed on the proximal circumflex artery segment. The lesion stenosis prior to intervention was 95% with ANNA 1 flow. A 6 Fr XB 3 Guide Catheter was used to engage the ostium. A Luge 182 Interventional Guidewire was used to cross the lesion. Final angiography reveals 95 % stenosis with ANNA 1 flow. COMMENTS unable to cross prox Cx with wire, Mid Cx is totally occluded. Conclusion Single Vessel Diz, proximal Cx 95% and Mid CX (OM1) occluded but well collaterlazied from LAD and RCA. Patent stens in left main/ LAD, and prox, Mid, and distal RCA. LV EF-55%, EDP-12 mmof Hg. Unable to Cross Cx. PRU ....155 ( pt is sensitive to Plavix, ok to continue plavix) Recommendations Daily ASA with Plavix for at least one year [facility] cc. Dr. Flaca Del Rio MD
--- NOTE | 2018-05-30 15:50 | CARD ---
APPROVED REPORT Date of service: 05/30/2018 EXAM: Two-dimensional and M-mode echocardiogram with Doppler and color Doppler. INDICATION Chest Pain NSTEMI 2D DIMENSIONS Left Atrium (2D)5.2 (1.6-4.0cm)IVSd1.1 (0.7-1.1cm) LVDd3.7 (3.9-5.9cm)PWd1.1 (0.7-1.1cm) LVDs2.5 (2.5-4.0cm)FS (%) 33.1 % LVEF (%)62.5 (>50%) M-Mode DIMENSIONS Aortic Root3.00 (2.2-3.7cm)Aortic Cusp Exc.1.50 (1.5-2.0cm) Aortic Valve AoV Peak Bkouguen549.0cm/sAoV VTI57.3cmAO Peak GR.18mmHg LVOT Peak Bkdpqnda114.0cm/sLVOT VTI32.60cmAO Mean GR.11mmHg Mitral Valve MV E Pvcovgyx79.8cm/sMV A Nqjuuvwd031.0cm/sE/A ratio0.9 TDI Lateral E' Peak V6.24cm/sMedial E' Peak V6.04cm/sE/Lateral E'14.7 E/Medial E'15.2 Pulmonary Valve PV Peak Zutelmvl60.1cm/sPV Peak Grad.2mmHg Tricuspid Valve TR Peak Bqjlvntd385zv/sRAP AKJNSNFK78yrFwTH Peak Gr.27mmHg IMMN50miYz LEFT VENTRICLE The left ventricle is normal size. There is normal left ventricular wall thickness. Proximal septal thickening is noted. The left ventricular function is normal.EF-55-60% There is mild hypokinesis in the apical anterior wall. Transmitral Doppler flow pattern is Grade III-reversible restrictive diastolic dysfunction. No left ventricle thrombus noted on this study. There is no ventricular septal defect visualized. There is no left ventricular aneurysm. There is no mass noted in the left ventricle. RIGHT VENTRICLE The right ventricle is normal size. There is normal right ventricular wall thickness. The right ventricular systolic function is normal. ATRIA The left atrium is mildly dilated. The right atrium size is normal. The interatrial septum is intact with no evidence for an atrial septal defect. AORTIC VALVE The aortic valve is moderately sclerotic. There is trace aortic regurgitation. Aoric sclerosis Vs Mild There is no aortic valvular vegetation. MITRAL VALVE The mitral valve is thickened but opens well. Mitral regurgitation is mild to moderate. There is no mitral valve stenosis. There is no evidence of mitral valve prolapse. TRICUSPID VALVE The tricuspid valve leaflets are thickened , but open well. There is trace to mild tricuspid regurgitation.RVSP_37 mof Hg. There is no tricuspid valve stenosis. There is no tricuspid valve prolapse or vegetation. PULMONIC VALVE The pulmonic valve is not well visualized. GREAT VESSELS The aortic root is normal in size. The ascending aorta is normal in size. The pulmonary artery is normal. The IVC is normal in size and collapses >50% with inspiration. PERICARDIAL EFFUSION There is no pleural effusion. There is no pericardial effusion. <Conclusion> The left ventricle is normal size. There is normal left ventricular wall thickness. Proximal septal thickening is noted. The left ventricular function is normal.EF-55-60% There is trace aortic regurgitation. Aoric sclerosis Vs Mild Mitral regurgitation is mild to moderate. There is trace to mild tricuspid regurgitation.RVSP_37 mof Hg. The IVC is normal in size and collapses >50% with inspiration. There is no pericardial effusion. S/p NSTEMI
--- NOTE | 2018-05-30 19:22 | CARD ---
APPROVED REPORT Date of service: 05/30/2018 EKG Measurement Heart [id number] [place] 162P2 [id number] <Conclusion> Sinus bradycardia Otherwise normal ECG
[2018-05-31] MEDS: oxyCODONE 30 mg Immediate Release Tab PO SCH ×4 (00:45→15:12)
--- NOTE | 2018-05-31 06:00 | CP.PCM.PN ---
Subjective - Date & Time of Evaluation Date of Evaluation: 05/31/18 Time of Evaluation: 06:35 - Subjective Subjective: Lying in bed,awake, alert, no distress Reason for consultation and follow up:Cardiac evaluation of midsternal chast pain, history of coronary artery disease post cardiac stent, hypertension, diabetes, post cardiac catheterization Seen and examined by me and Dr. Montano Objective - Vital Signs/Intake and Output Vital Signs (last 24 hours): Temp Pulse Resp BP Pulse Ox 97.9 F 54 L 20 113/51 L 96 05/31/18 00:01 05/31/18 05:17 05/31/18 00:01 05/31/18 00:01 05/31/18 00:01 Intake and Output: 05/30/18 05/31/18 18:59 06:59 Intake Total 1000 240 Output Total 2 Balance 1000 238 - Medications Medications: Current Medications Alprazolam (Xanax) 1 mg PO Q6 PRN; Protocol PRN Reason: Anxiety Last Admin: 05/30/18 15:25 Dose: 1 mg Amlodipine Besylate (Norvasc) 10 mg PO DAILY [facility] Last Admin: 05/30/18 11:38 Dose: 10 mg Aspirin (Ecotrin) 81 mg PO DAILY [facility] Last Admin: 05/30/18 09:02 Dose: 81 mg Atorvastatin Calcium (Lipitor) 40 mg PO DIN [facility] Last Admin: 05/30/18 18:52 Dose: 40 mg Clopidogrel Bisulfate (Plavix) 75 mg PO DAILY [facility] Last Admin: 05/30/18 09:02 Dose: 75 mg Insulin Human NPH (Humulin N) 30 units SC ACB [facility] Last Admin: 05/30/18 08:50 Dose: Not Given Isosorbide Mononitrate (Imdur) 60 mg PO DAILY [facility] Last Admin: 05/30/18 11:38 Dose: 60 mg Metoprolol Tartrate (Lopressor) 50 mg PO BRKDIN [facility] Last Admin: 05/30/18 11:21 Dose: Not Given Non-Formulary Medication (Diclofenac Sodium [Diclofenac Sodium Er]) 100 mg PO DAILY [facility] Last Admin: 05/30/18 11:21 Dose: Not Given Oxycodone HCl (Oxycodone Immediate Release Tab) 30 mg PO Q6H [facility] Last Admin: 05/31/18 00:45 Dose: Not Given Pantoprazole Sodium (Protonix Ec Tab) 40 mg PO DAILY [facility] Last Admin: 05/30/18 11:39 Dose: 40 mg - Labs Labs: 05/30/18 13:18 05/30/18 13:19 PT 10.7 SECONDS (9.4-12.5) 05/28/18 07:30 INR 0.93 05/28/18 07:30 APTT 24.7 Seconds (25.1-36.5) L 05/28/18 07:30 - Constitutional Appears: Non-toxic, No Acute Distress - Head Exam Head Exam: NORMAL INSPECTION, NORMOCEPHALIC - Eye Exam Eye Exam: Normal appearance Pupil Exam: NORMAL ACCOMODATION - ENT Exam ENT Exam: Mucous Membranes Moist, Normal Exam - Respiratory Exam Respiratory Exam: Clear to Ausculation Bilateral, NORMAL BREATHING PATTERN - Cardiovascular Exam Cardiovascular Exam: Bradycardia, +S1, +S2 Additional comments: Telemetry SB 50's - GI/Abdominal Exam GI & Abdominal Exam: Soft, Normal Bowel Sounds - Extremities Exam Extremities Exam: Full ROM, Normal Capillary Refill Additional comments: right groin no bleeding, no hematoma - Neurological Exam Neurological Exam: Alert, Awake, Oriented x3 - Psychiatric Exam Psychiatric exam: Normal Affect, Normal Mood - Skin Skin Exam: Dry, Normal Color, Warm Assessment and Plan - Assessment and Plan (Free Text) Assessment: An 82 year old female who came in to the ER due to midsternal chest pain, no radiating.History of coronary artery disease post cardiac stent, last March at [facility], hypertension, diabetes. Recent ECHO on 01/26/18 showed LV size normal, Mild concentric LV hyperthropy,Proximal septal thickening,LVEF 55-60%,Trace aortic regurgitation,Mild mitral regurgitation, moderate tricuspid regurgitation, RVSP 59 mmHg, moderate pulmonary hypertension. No pericardial effusion. Positive troponin. NSTEMI. Had cardiac cath yesterday. Plan: Cardiac cath done yesterday-Proximal Cx 95% and Mid Cx (Om1) occluded but well collateralized from LAD and RCA, Patent stents in Left main/LAD and proximal mid and distal RCA.LVEF 55%. Unable to cross proximal Cx with wire. Mid Cx is totally occluded Will treat medically, Aspirin and Plavix for at least one year Denies chest pain or shortness of breath Blood pressure controlled Heart rate Sinus bradycardia Will restart Lopressor but lower the dose On Norvasc 10 mg daily,ASA 81 mg daily,Lipitor 40 mg daily, Plavix 75 mg daily, Lovenox 70 mg every 12 hours,Imdur 60 mg daily, Lopressor 25 mg BID Continue current treatment Continue current medications Discontinue telemetry May discharge from cardiac standpoint Will follow up Chart reviewed Plan and treatment discussed with Dr. Montano
[2018-05-31 06:57] VITALS: O2SAT 97
[2018-05-31 08:54] LABS: BASO # 0.01 K/mm3 (0.0-2.0); BASO % 0.2 % (0.0-3.0); EOS # 0.2 (0.0-0.7); EOS % 2.9 % (1.5-5.0); GRAN # 4.01 (1.4-6.5); GRAN % 71.6 % (50.0-68.0); HEMOGLOBIN 12.1 g/dL (12.0-16.0); LYMPH % 17.4 % (22.0-35.0); MEAN CELL VOLUME 85.3 fl (80.0-105.0); MEAN CORPUSCULAR HEMOGLOBIN 27.3 pg (25.0-35.0); MEAN PLATELET VOLUME 9.1 fl (7.0-11.0); MONO # 0.4 (0.1-0.6); MONO % 7.9 % (1.0-6.0); RBC 4.43 10^6/uL (3.5-6.1); RED CELL DISTRIBUTION WIDTH 13.9 % (11.5-14.5); WHITE BLOOD COUNT 5.6 10^3/uL (4.5-11.0)
[2018-05-31] MEDS: Insulin Human NPH 1 UNITS/0.01 ML SC SCH (09:02)
[2018-05-31] MEDS: Pantoprazole 40 mg EC Tab PO SCH (09:29)
[2018-05-31 09:41] LABS: ALB/GLOB RATIO 1.2 (1.1-1.8); ALBUMIN 3.6 g/dL (3.0-4.8); ALT/SGPT 23 U/L (7-56); AST/SGOT 31 U/L (14-36); BLOOD UREA NITROGEN 13 mg/dL (7-21); GFR NON-AFRICAN AMERICAN > 60; TROPONIN I 1.28 ng/mL
[2018-05-31] MEDS: DICLOFENAC SODIUM 100 MG PO SCH (11:53)
[2018-05-31 12:28] VITALS: RESP 18; TEMP 98.5
--- NOTE | 2018-05-31 12:32 | CP.PCM.PN ---
Subjective - Date & Time of Evaluation Date of Evaluation: 05/31/18 Time of Evaluation: 12:26 - Subjective Subjective: pt seen at bedside s/p le doppler, pt reports discomfort in her legs from the LE ultrasound but offers no additional complaints and is in no acute distress ROS - negative, denies sob, denies cp Objective - Vital Signs/Intake and Output Vital Signs (last 24 hours): Temp Pulse Resp BP Pulse Ox 97.8 F 56 L 20 138/52 L 97 05/31/18 06:00 05/31/18 06:00 05/31/18 06:00 05/31/18 09:29 05/31/18 06:00 Intake and Output: 05/31/18 05/31/18 06:59 18:59 Intake Total 540 Output Total 2 Balance 538 - Medications Medications: Current Medications Alprazolam (Xanax) 1 mg PO Q6 PRN; Protocol PRN Reason: Anxiety Last Admin: 05/31/18 12:02 Dose: 1 mg Amlodipine Besylate (Norvasc) 10 mg PO DAILY [facility] Last Admin: 05/31/18 09:29 Dose: 10 mg Aspirin (Ecotrin) 81 mg PO DAILY [facility] Last Admin: 05/31/18 09:28 Dose: 81 mg Atorvastatin Calcium (Lipitor) 40 mg PO DIN [facility] Last Admin: 05/30/18 18:52 Dose: 40 mg Clopidogrel Bisulfate (Plavix) 75 mg PO DAILY [facility] Last Admin: 05/31/18 09:29 Dose: 75 mg Insulin Human NPH (Humulin N) 30 units SC ACB [facility] Last Admin: 05/31/18 09:02 Dose: 30 u Isosorbide Mononitrate (Imdur) 60 mg PO DAILY [facility] Last Admin: 05/31/18 09:29 Dose: 60 mg Metoprolol Tartrate (Lopressor) 25 mg PO BRKDIN [facility] Non-Formulary Medication (Diclofenac Sodium [Diclofenac Sodium Er]) 100 mg PO DAILY [facility] Last Admin: 05/31/18 11:53 Dose: Not Given Oxycodone HCl (Oxycodone Immediate Release Tab) 30 mg PO Q6H [facility] Last Admin: 05/31/18 06:10 Dose: Not Given Pantoprazole Sodium (Protonix Ec Tab) 40 mg PO DAILY [facility] Last Admin: 05/31/18 09:29 Dose: 40 mg - Labs Labs: 05/31/18 08:40 05/31/18 08:40 PT 10.7 SECONDS (9.4-12.5) 05/28/18 07:30 INR 0.93 05/28/18 07:30 APTT 24.7 Seconds (25.1-36.5) L 05/28/18 07:30 - Constitutional Appears: Well, Non-toxic, No Acute Distress - Head Exam Head Exam: ATRAUMATIC, NORMAL INSPECTION, NORMOCEPHALIC - Eye Exam Eye Exam: Normal appearance, PERRL Pupil Exam: NORMAL ACCOMODATION - ENT Exam ENT Exam: Mucous Membranes Moist - Neck Exam Neck Exam: Normal Inspection - Respiratory Exam Respiratory Exam: Clear to Ausculation Bilateral, NORMAL BREATHING PATTERN - Cardiovascular Exam Cardiovascular Exam: +S1, +S2 - GI/Abdominal Exam GI & Abdominal Exam: Normal Bowel Sounds - Rectal Exam Rectal Exam: Deferred - Extremities Exam Extremities Exam: Full ROM, Normal Capillary Refill - Neurological Exam Neurological Exam: Alert, Awake, Oriented x3 Neuro motor strength exam: Left Upper Extremity: 4, Right Upper Extremity: 4, Left Lower Extremity: 4, Right Lower Extremity: 4 - Psychiatric Exam Psychiatric exam: Normal Affect, Normal Mood - Skin Skin Exam: Dry, Intact, Warm Assessment and Plan - Assessment and Plan (Free Text) Assessment: 82 yr old white female with pmh sig for DM, NSTEMI with RCA stent 05/2015, HTN, CAD with stent who was admitted for chest pain and found with NSTEMI status post cardiac cath yesterday with 95% occlusion in the prox circ that was unable to be crossed now for medical therapy as per cardiology consultation. pt on asa, statin, nitrate and BB therapyfor maximal medical therapy, Per pt complaint of LE pain, will order p.t eval to assess mobility. Pt blood sugar noted in the 300s. staeted sliding scale regimen and will monitor. Pt states she lives alone with son upstairs and uses rolling walker. Cardiology note reviewed. Will await P.T eval. discuss plan of care with PMD and continue to follow clinically. Kerline Fischer DNP, RETAIL MANAGEMENT KEYHOLDER
--- NOTE | 2018-05-31 13:27 | PN ---
DATE: 05/31/2018 REASON FOR CONSULTATION AND FOLLOWUP: Unstable angina, acute coronary syndrome, status post left main stent. Yesterday, she underwent cardiac catheterization, unable to cross circ, totally occluded. This note is addition to dictated by nurse practitioner. RECOMMENDATIONS: Yesterday, the patient underwent cardiac catheterization that revealed preserved LV function, high-grade ostial RCA of 95 percent and mid circ totally occluded, though very well collateralized from LAD and circumflex. PTCA for circumflex attempted, unable to cross. PRE was done, it was 155. Recommendation: Medical treatment recommended. The patient also has echo that shows preserved LV function, ejection fraction of 55 percent. Yesterday, echo done also revealed mild aortic sclerosis versus aortic stenosis, [id number] mitral regurgitation, [id number] tricuspid regurgitation. Recommendation: Medical treatment including aspirin, Plavix, Imdur, atorvastatin and metoprolol. Troponin is trending down. Thank you Dr. Del Rio for providing us the opportunity in taking care of the patient, Vince Cohen. Sarina Montano MD
--- NOTE | 2018-05-31 13:45 | US ---
PROCEDURE: Lower extremity KASSIE exam HISTORY: Peripheral vascular disease with pain and claudication. Diabetes PHYSICIAN(S): Liang Hernández MD. FINDINGS: The exam is limited by calcified vessels distally. The resting ABIs are not obtainable. The brachial systolic pressures are symmetric. The high thigh pressures and waveforms are relatively normal. The calf PVR waveforms are normal and symmetric. The distal waveforms are normal and symmetric IMPRESSION: 1. Limited study due to calcified vessels. 2. The PVR waveforms are normal and symmetric at all levels
[2018-05-31] MEDS ORDERED: Insulin Regular 1 UNITS/0.01 ML ML SC ONE (13:50)
[2018-05-31] MEDS ORDERED: Insulin Reg-LOW-Coverage SC SCH (16:30)
[2018-05-31 16:39] VITALS: BP 115/58; PULSE 78
--- NOTE | 2018-05-31 18:47 | CARD ---
APPROVED REPORT Date of service: 05/31/2018 EKG Measurement Heart [id number] 140P3 [id number] <Conclusion> Normal sinus rhythm Normal ECG
== END 2018-05-31 17:15 | disposition home or self-care (01) | DRG 282 ==
LOC: ED 07:02 → ERH 08:21 → 2RNO 09:10 → 2RSO 05-30 11:31 → OBSVTOIN 05-30 15:30 → 2RSO 05-31 09:30
PROVIDERS: ADMIT Internal Medicine; ATTEND Internal Medicine
PROC: 4A023N7 Measurement of Cardiac Sampling and Pressure, Left Heart, Percutaneous Approach (ICD-10-PCS; principal; 2018-05-30)
PROC: B216YZZ Fluoroscopy of Right and Left Heart using Other Contrast (ICD-10-PCS; 2018-05-30)
PROC: B211YZZ Fluoroscopy of Multiple Coronary Arteries using Other Contrast (ICD-10-PCS; 2018-05-30)
PROC: 3E033PZ Introduction of Platelet Inhibitor into Peripheral Vein, Percutaneous Approach (ICD-10-PCS; 2018-05-30)
DX: I21.4 Non-ST elevation (NSTEMI) myocardial infarction (principal); I10 Essential (primary) hypertension; I25.5 Ischemic cardiomyopathy; I25.10 Atherosclerotic heart disease of native coronary artery without angina pectoris; E11.9 Type 2 diabetes mellitus without complications; Z79.02 Long term (current) use of antithrombotics/antiplatelets; Z79.4 Long term (current) use of insulin; E78.5 Hyperlipidemia, unspecified; H54.8 Legal blindness, as defined in USA; I25.2 Old myocardial infarction; K21.9 Gastro-esophageal reflux disease without esophagitis; Z87.442 Personal history of urinary calculi; Z95.5 Presence of coronary angioplasty implant and graft; Z96.649 Presence of unspecified artificial hip joint; I08.3 Combined rheumatic disorders of mitral, aortic and tricuspid valves

== ENCOUNTER 2018-08-16 09:25 | Inpatient (IN) | payer MEDICARE, MEDICAID ==
[2018-08-16 09:43] VITALS: BMI 29.2
[2018-08-16] MEDS ORDERED: Morphine 2 mg/ml ISec IVP STA (09:57)
[2018-08-16 10:13] LABS: LYMPH # 0.4 (1.2-3.4); LYMPH % 5.8 % (22.0-35.0); MEAN CELL VOLUME 80.3 fl (80.0-105.0); MEAN CORPUSCULAR HGB CONC 32.3 g/dl (31.0-37.0); MONO # 0.5 (0.1-0.6); MONO % 6.2 % (1.0-6.0); RBC 4.62 10^6/uL (3.5-6.1); WHITE BLOOD COUNT 7.4 10^3/uL (4.5-11.0)
[2018-08-16 10:18] LABS: ALB/GLOB RATIO 1.3 (1.1-1.8); ALBUMIN 4.5 g/dL (3.0-4.8); ALT/SGPT 14 U/L (7-56); AST/SGOT 38 U/L (14-36); BLOOD UREA NITROGEN 16 mg/dL (7-21); CALCIUM 9.9 mg/dL (8.4-10.5); GFR NON-AFRICAN AMERICAN > 60
--- NOTE | 2018-08-16 10:21 | ED PDOC ---
Arrival/HPI - General Historian: Patient - History of Present Illness Narrative History of Present Illness (Text): 08/16/18 10:14 82F w/ a significant cardiac hx, diabetes, hypertension, [place] [facility] [place] complaining of chest pain. Patient reports chest pain began hours prior to arrival when she awoke this morning to urinate. She reports CP is left sided 10/10 pressure like in sensation w/ radiation into L arm assoc w/ SOB. Reported that she took 3 nitro and 1 asa at home as well as 1 nitro and aspirin loading w/ EMS. Patient reports CP is worse w/ ambulation. Patient reported that she suffers from chornic leg/thigh pain and required epidural recently; she reported that she stopped her plavix x5 days for the procedure and resumed w/ 1 dose yesterday evening. Patient reports her Remainder 12 system of ROS otherwise negative Denies Smoking, EtOH, Illicit Drug use PMH: as above PSH: Replacement R shoulder <Dave Ryan - Last Filed: 08/16/18 11:39> <Joselin Carr - Last Filed: 08/16/18 12:57> - General Chief Complaint: Chest Pain Time Seen by Provider: 08/16/18 10:14 Past Medical History - Provider Review Nursing Documentation Reviewed: Yes - Infectious Disease Hx of Infectious Diseases: None - Past Medical History Past Medical History: No Previous - Cardiac Hx Hypertension: Yes Other/Comment: 1 Cardiac stent 2017 - Pulmonary Hx Respiratory Disorders: No - Neurological Hx Neurological Disorder: No - HEENT Hx HEENT Disorder: Yes (legally blind) Hx Cataracts: Yes (left eye sx 5 yrs ago) - Renal Hx Renal Disorder: Yes Hx Kidney Stones: Yes (2006 right side kidney stone) - Endocrine/Metabolic Hx Endocrine Disorders: Yes Hx Diabetes Mellitus Type 1: Yes - Hematological/Oncological Hx Blood Disorders: No - Integumentary Hx Dermatological Disorder: No - Musculoskeletal/Rheumatological Hx Falls: Yes - Gastrointestinal Hx Gastrointestinal Disorders: Yes Hx Gastroesophageal Reflux: Yes - Genitourinary/Gynecological Hx Genitourinary Disorders: Yes Hx Hematuria: Yes - Psychiatric Hx Psychophysiologic Disorder: Yes Hx Substance Use: No - Past Surgical History Past Surgical History: No Previous - Surgical History Hx Cardiac Catheterization: Yes - Anesthesia Hx Anesthesia Reactions: No Hx Malignant Hyperthermia: No - Suicidal Assessment Feels Threatened In Home Enviroment: No <Dave Ryan Last Filed: 08/16/18 11:39> Family/Social History Smoking Status: Never Smoked Hx Alcohol Use: No Hx Substance Use: No <Dave Ryan Last Filed: 08/16/18 11:39> Family/Social History: Unknown Family HX <Joselin Carr - Last Filed: 08/16/18 12:57> Allergies/Home Meds <Dave Ryan - Last Filed: 08/16/18 11:39> <BrunoAngelJoselin - Last Filed: 08/16/18 12:57> Allergies/Adverse Reactions: Allergies No Known Allergies Allergy (Verified 08/16/18 12:49) Home Medications: Home Meds Medication Instructions Recorded Confirmed RX: Pantoprazole Sodium [Protonix] 40 mg PO DAILY 04/21/15 08/16/18 RX: Rosuvastatin Calcium [Crestor] 10 mg PO DAILY 04/21/15 08/16/18 RX: Diclofenac Sodium [Diclofenac 100 mg PO DAILY 05/28/18 05/28/18 Sodium ER] RX: Insulin Human NPH [Humulin N] 30 units SC ACB 05/28/18 08/16/18 RX: Nitroglycerin [Nitrostat SL 0.6 mg SL PRN PRN 08/16/18 08/16/18 Tab] RX: oxyCODONE [oxyCODONE Immediate 30 mg PO Q4 PRN MDD ' 08/16/18 08/16/18 Release Tab] Review of Systems - Review of Systems Constitutional: Normal Eyes: Normal ENT: Normal Respiratory: SOB Cardiovascular: Chest Pain Gastrointestinal: Normal Musculoskeletal: Back Pain Skin: Normal Neurological: Normal Endocrine: Normal Hemo/Lymphatic: Normal Psychiatric: Normal <Dave Ryan Last Filed: 08/16/18 11:39> Physical Exam Vital Signs Reviewed: Yes Vital Signs Temp Pulse Resp BP Pulse Ox 08/16/18 09:25 98.8 F 92 H 18 159/77 H 100 Temperature: Afebrile Blood Pressure: Hypertensive Pulse: Regular Respiratory Rate: Normal Appearance: Positive for: Uncomfortable Pain Distress: Mild Mental Status: Positive for: Alert and Oriented X 3 - Systems Exam Head: Present: Atraumatic, Normocephalic Pupils: Present: PERRL Extroacular Muscles: Present: EOMI Conjunctiva: Present: Normal Mouth: Present: Moist Mucous Membranes Respiratory/Chest: Present: Clear to Auscultation, Good Air Exchange, Tender to Palpation (L chest wall ). No: Respiratory Distress Cardiovascular: Present: Regular Rate and Rhythm, Normal S1, S2. No: Murmurs Abdomen: Present: Normal Bowel Sounds. No: Tenderness, Distention Upper Extremity: Present: Normal Inspection, NORMAL PULSES Lower Extremity: Present: Normal Inspection, NORMAL PULSES Neurological: Present: GCS=15, CN II-XII Intact Skin: Present: Warm, Dry, Normal Color Psychiatric: Present: Alert, Oriented x 3 <Dave Ryan - Last Filed: 08/16/18 11:39> Vital Signs Temp Pulse Resp BP Pulse Ox 08/16/18 10:18 98.8 F 75 18 158/86 H 100 08/16/18 09:25 98.8 F 92 H 18 159/77 H 100 <Jsoelin Carr - Last Filed: 08/16/18 12:57> Medical Decision Making ED Course and Treatment: 08/16/18 10:34 CP - ACS r/o L sided chest tenderness to palpatoin EKG w/ lateral lead depressions Trop pending/ BNP pending CBC/CMP wnl Patient loaded w/ ASA by EMS Plavix admin Morphine 2mg IVP stat No resolution w/ sublingual nitro 08/16/18 11:47 Troponin elevated 0.34 Bedside FOBT negative Spoke with Dr. Montano 1130 Start weight-based heparin drip, and bolus. Dusty evaluated at bedside Spoke with Dr. Del Rio Who accept admission - Medication Orders Current Medication Orders: Discontinued Medications Clopidogrel Bisulfate (Plavix) 75 mg PO STAT [facility] Stop: 08/16/18 09:58 Last Admin: 08/16/18 10:08 Dose: 75 mg Morphine Sulfate (Morphine) 2 mg IVP STAT STA Stop: 08/16/18 09:58 Last Admin: 08/16/18 10:07 Dose: 2 mg MAR Pain Assessment Document 08/16/18 10:07 LA (Rec: 08/16/18 10:08 [place] [facility] [place] Pain Reassessment Is this a pain reassessment? No IVP Administration Document 08/16/18 10:07 LA (Rec: 08/16/18 10:08 [place] [facility] [place] Charges for Administration # of IVP Administrations 1 <Dave Ryan - Last Filed: 08/16/18 11:39> - Lab Interpretations Lab Results: Troponin I 0.34 ng/mL H* D 08/16/18 10:00 NT-Pro-B Natriuret Pep 713 pg/mL (0-450) H 08/16/18 10:00 Total Bilirubin 0.5 mg/dL (0.2-1.3) 08/16/18 10:00 AST 38 U/L (14-36) H D 08/16/18 10:00 ALT 14 U/L (7-56) 08/16/18 10:00 Alkaline Phosphatase 146 U/L (38-126) H D 08/16/18 10:00 Total Protein 7.9 g/dL (5.8-8.3) 08/16/18 10:00 Albumin 4.5 g/dL (3.0-4.8) 08/16/18 10:00 Globulin 3.4 gm/dL 08/16/18 10:00 Albumin/Globulin Ratio 1.3 (1.1-1.8) 08/16/18 10:00 - RAD Interpretation Radiology Orders: 08/16/18 10:13 CHEST PORTABLE [RAD] Stat - Medication Orders Current Medication Orders: Heparin Sodium/Sodium Chloride (Heparin 14305 Units/250ml 1/2 Normal Saline) 25,000 units in 250 mls @ 8.154 mls/hr IV .Q24H [facility]; Protocol Discontinued Medications Clopidogrel Bisulfate (Plavix) 75 mg PO STAT [facility] Stop: 08/16/18 09:58 Last Admin: 08/16/18 10:08 Dose: 75 mg Heparin Sodium (Porcine) (Heparin) 4,000 units IV ONCE ONE; Protocol Stop: 08/16/18 11:35 Last Admin: 08/16/18 11:52 Dose: 4,000 units eMAR Start Stop Document 08/16/18 11:52 TRISH (Rec: 08/16/18 11:52 [place] [facility] [place] Intravenous Solution Start Date 08/16/18 Start Time 11:52 Morphine Sulfate (Morphine) 2 mg IVP STAT STA Stop: 08/16/18 09:58 Last Admin: 08/16/18 10:07 Dose: 2 mg MAR Pain Assessment Document 08/16/18 10:07 LA (Rec: 08/16/18 10:08 [place] [facility] [place] Pain Reassessment Is this a pain reassessment? No IVP Administration Document 08/16/18 10:07 LA (Rec: 08/16/18 10:08 [place] [facility] [place] Charges for Administration # of IVP Administrations 1 Re-Assess: MAR Pain Assessment Document 08/16/18 11:07 LA (Rec: 08/16/18 11:51 [place] [facility] [place] Pain Reassessment Is this a pain reassessment? Yes Sleep Is patient sleeping during reassessment? Yes <Joselin Carr - Last Filed: 08/16/18 12:57> - PA / CIRCUIT BREAKER ASSEMBLER / Resident Statement / has reviewed & agrees with the documentation as recorded. / has examined the patient and agrees with the treatment plan. <Joselin Carr - Last Filed: 08/16/18 12:57> Disposition/Present on Arrival - Present on Arrival History of DVT/PE: No History of Uncontrolled Diabetes: No Urinary Catheter: No History of Decub. Ulcer: No History Surgical Site Infection Following: None <Dave Ryan - Last Filed: 08/16/18 11:39> - Present on Arrival Any Indicators Present on Arrival: No History of DVT/PE: No History of Uncontrolled Diabetes: No Urinary Catheter: No History of Decub. Ulcer: No - Disposition Have Diagnosis and Disposition been Completed?: Yes Disposition Time: 11:47 Patient Plan: Admission, Telemetry <Joselin Carr - Last Filed: 08/16/18 12:57> - Disposition Diagnosis: NSTEMI (non-ST elevated myocardial infarction), Hyperglycemia Disposition: HOSPITALIZED Patient Problems: Current Active Problems Problem Status Onset Hyperglycemia Acute NSTEMI (non-ST elevated myocardial infarction) Acute Condition: STABLE
[2018-08-16 10:50] LABS: TROPONIN I 0.34 ng/mL
--- NOTE | 2018-08-16 10:59 | RAD ---
Date of service: 08/16/2018 HISTORY: Chest Pain. COMPARISON: 05/28/2018 FINDINGS: LUNGS: No active pulmonary disease. PLEURA: No significant pleural effusion identified, no pneumothorax apparent. CARDIOVASCULAR: No aortic atherosclerotic calcification present. Normal cardiac size. No pulmonary vascular congestion. OSSEOUS STRUCTURES: No significant abnormalities. VISUALIZED UPPER ABDOMEN: Normal. OTHER FINDINGS: None. IMPRESSION: No active disease.
--- NOTE | 2018-08-16 12:11 | CARD ---
APPROVED REPORT Date of service: 08/16/2018 EKG Measurement Heart [id number] <Conclusion> Normal sinus rhythm ST depression, consider subendocardial injury or digitalis effect Prolonged QT Abnormal ECG
[2018-08-16 12:18] LABS: INR 1.01; PARTIAL THROMBOPLASTIN TIME 29.9 Seconds (26.9-38.3); PROTHROMBIN TIME 11.4 SECONDS (9.4-12.5)
[2018-08-16] MEDS: Heparin25000 units/250ml 1/2NS 25,000 UNITS/250 ML BAG IV SCH (12:26)
[2018-08-16] MEDS: Nitroglycerin 2% Ointment Foilpak UD TOP SCH ×2 (12:39→18:17)
[2018-08-16] MEDS: oxyCODONE 5 mg Immediate Release Tab PO PRN ×2 (13:04→23:00)
[2018-08-16 13:07] LABS: LDL CHOLESTEROL 72 mg/dL (0-129)
[2018-08-16 13:10] LABS: HDL CHOLESTEROL 118 mg/dL (29-60)
[2018-08-16] MEDS ORDERED: Influenza Vaccine 60 mcg/0.5 mL SYR (4YR UP) IM ONE (19:05)
[2018-08-16] MEDS ORDERED: Pneumococcal 23-Valent Vaccine IM ONE (19:05)
[2018-08-16] MEDS: Insulin Reg-MEDIUM-Coverage SC SCH (22:39)
--- NOTE | 2018-08-17 00:22 | CP.PCM.PN ---
<Taurus Murrieta - Last Filed: 08/17/18 00:13> Subjective - Date & Time of Evaluation Date of Evaluation: 08/17/18 Time of Evaluation: 00:14 - Subjective Subjective: S: Patient was admitted for NSTEMI. Troponin on admission was 0.34. I was called to assess the patient due to 2nd troponin level elevated at 37. Patient was lying comfortably in bed. Patient was asymptomatic at the time of assessment. Patient denied CP, SOB, n/v/d, abdominal pain, fever, chills, PRITCHARD, and dizziness. O: Gen: NAD, afebrile HEENT: No JVD, No lymphandeopathy CV: RRR, no m/r/g, S1S2 presents Pulm: CTAB, no w/r/r GI: Soft, NTND, normal bowel sounds Neuro: Awake, AOx3 A: 82 yo F who is admitted for NSTEMI. I was called overnight for dramatically pawel vated troponin from initial level. P: - Electrical Construction Project Manager, Dr. Long was contacted, who advised monitoring and repeat troponin in the morning - Stat EKG ordered, showed NSR was mild ST depressions in lateral leads, consistent with prior EKG - Medications reviewed and will be continued, including: heparin drip, nitro paste, metoprolol, lipitor, ASA, and plavix - Patient was discussed with Dr. Sunshine Objective - Vital Signs/Intake and Output Vital Signs (last 24 hours): Temp Pulse Resp BP Pulse Ox 98.7 F 60 18 155/70 H 97 08/16/18 16:40 08/16/18 22:00 08/16/18 18:39 08/16/18 18:16 08/16/18 16:40 Intake and Output: 08/16/18 08/17/18 18:59 06:59 Intake Total 480 Output Total 1 Balance 479 - Medications Medications: Current Medications Aspirin (Ecotrin) 81 mg PO DAILY [facility] Atorvastatin Calcium (Lipitor) 40 mg PO DAILY [facility] Heparin Sodium/Sodium Chloride (Heparin 05727 Units/250ml 1/2 Normal Saline) 25,000 units in 250 mls @ 8.154 mls/hr IV .Q24H [facility]; Protocol Last Titration: 08/16/18 21:08 Dose: 14 units/kg/hr, 9.513 mls/hr Insulin Human Regular (Humulin R Med) 0 units SC ACHS [facility]; Protocol Last Admin: 08/16/18 22:39 Dose: Not Given Isosorbide Mononitrate (Imdur) 60 mg PO DAILY [facility] Metoprolol Tartrate (Lopressor) 25 mg PO BID [facility] Last Admin: 08/16/18 18:16 Dose: 25 mg Nitroglycerin (Nitro-Bid 2% Oint) 0.5 ea TOP Q6H [facility] Last Admin: 08/16/18 18:17 Dose: 0.5 ea Oxycodone HCl (Oxycodone Immediate Release Tab) 15 mg PO Q6H PRN PRN Reason: Pain, severe (8-10) Last Admin: 08/16/18 23:00 Dose: 15 mg Pantoprazole Sodium (Protonix Ec Tab) 40 mg PO DAILY [facility] - Labs Labs: 08/16/18 10:00 08/16/18 10:00 PT 11.4 SECONDS (9.4-12.5) 08/16/18 10:00 INR 1.01 08/16/18 10:00 APTT 48.3 Seconds (26.9-38.3) H 08/16/18 19:20 <Jessica Sunshine - Last Filed: 08/17/18 01:16> Objective - Vital Signs/Intake and Output Vital Signs (last 24 hours): Temp Pulse Resp BP Pulse Ox 98.7 F 60 18 155/70 H 97 08/16/18 16:40 08/16/18 22:00 08/16/18 18:39 08/16/18 18:16 08/16/18 16:40 Intake and Output: 08/16/18 08/17/18 18:59 06:59 Intake Total 480 Output Total 1 Balance 479 - Medications Medications: Current Medications Aspirin (Ecotrin) 81 mg PO DAILY [facility] Atorvastatin Calcium (Lipitor) 40 mg PO DAILY [facility] Heparin Sodium/Sodium Chloride (Heparin 04333 Units/250ml 1/2 Normal Saline) 25,000 units in 250 mls @ 8.154 mls/hr IV .Q24H [facility]; Protocol Last Titration: 08/16/18 21:08 Dose: 14 units/kg/hr, 9.513 mls/hr Insulin Human Regular (Humulin R Med) 0 units SC ACHS [facility]; Protocol Last Admin: 08/16/18 22:39 Dose: Not Given Isosorbide Mononitrate (Imdur) 60 mg PO DAILY [facility] Metoprolol Tartrate (Lopressor) 25 mg PO BID [facility] Last Admin: 08/16/18 18:16 Dose: 25 mg Nitroglycerin (Nitro-Bid 2% Oint) 0.5 ea TOP Q6H [facility] Last Admin: 08/16/18 18:17 Dose: 0.5 ea Oxycodone HCl (Oxycodone Immediate Release Tab) 15 mg PO Q6H PRN PRN Reason: Pain, severe (8-10) Last Admin: 08/16/18 23:00 Dose: 15 mg Pantoprazole Sodium (Protonix Ec Tab) 40 mg PO DAILY [facility] - Labs Labs: 08/16/18 10:00 08/16/18 10:00 PT 11.4 SECONDS (9.4-12.5) 08/16/18 10:00 INR 1.01 08/16/18 10:00 APTT 48.3 Seconds (26.9-38.3) H 08/16/18 19:20 Attending/Attestation - Attestation I have personally seen and examined this patient.: Yes I have fully participated in the care of the patient.: Yes I have reviewed all pertinent clinical information, including history, physical exam and plan: Yes Notes (Text): 08/17/18 01:11 Pt seen,discussed with resident,agree with plan of care.
[2018-08-17] MEDS: Nitroglycerin 2% Ointment Foilpak UD TOP SCH ×2 (02:19→05:46)
--- NOTE | 2018-08-17 02:52 | HP ---
DATE OF EXAM: 08/16/2018 CHIEF COMPLAINT: Chest pain. Source of . HISTORY OF PRESENT ILLNESS: This is an 82-year-old woman who underwent epidural injection yesterday and developed chest pain today and came to the office. She has a history of coronary artery disease and status post PCTA and stent placement several months ago. She has cleared by her Cardiology. Her aspirin and Plavix was held for 3 to 5 days. She underwent the epidural uneventfully and developed pain this morning. PAST MEDICAL HISTORY: Significant for coronary artery disease, anxiety, diabetes, depression, COPD, and osteoarthritis. She is status post hysterectomy and cholecystectomy. SOCIAL HISTORY: She does not smoke, never did. Does not drink alcohol. ALLERGIES: SHE HAS NO KNOWN ALLERGIES TO MEDICATIONS. CURRENT MEDICATIONS AT HOME: Include diclofenac 100 mg once a day, sublingual nitro p.r.n. pain, NPH insulin 30 units in the morning 20 units in the evening, rosuvastatin 10 mg daily, pantoprazole 40 mg daily, oxycodone 30 mg q.i.d. p.r.n. pain, aspirin 81 daily, isosorbide 50 mg, metoprolol 50 mg b.i.d., amlodipine 10 mg daily, and Plavix 75 mg daily. REVIEW OF SYSTEMS: Significant for arthritis pain of the low back, knees, and hips, and some GI symptoms. PHYSICAL EXAMINATION: GENERAL: The patient was seen in the emergency room, slot number 14 this Wednesday evening. She is resting comfortably in bed, is now chest pain-free. She is awake, alert, clear, recognizes me. HEENT: Conjunctivae are pink. Mucous membranes moist. NECK: Supple without masses. Thyroid is not palpable. LUNGS: Show good aeration right and left. HEART: Regular, not tachycardic. ABDOMEN: Soft. Mildly overweight. EXTREMITIES: Show no edema. IMPRESSION: 1. Acute non-ST elevation myocardial infarction. 2. Coronary artery disease. 3. 24 hours status post epidural injection. 4. Diabetes. 5. Osteoarthritis. 6. Hiatal hernia. 7. Reflux. 8. Chronic obstructive pulmonary disease. 9. Depression. 10. Anxiety. PLAN: Dr. Long/Dr. Montano, her polishing machine operator helper have been notified. The patient will be admitted to monitored bed. Cardiac enzymes ordered. Further workup per Cardiology. We will follow sugar, blood pressure, and arthritis symptoms. The patient was counseled about high dose of opioids she takes on regular basis, but she reports that she has tremendous pain that she gives her no alternative. Edil Del Rio MD
[2018-08-17 03:49] LABS: BASO # 0.03 K/mm3 (0.0-2.0); BASO % 0.4 % (0.0-3.0); EOS % 0.4 % (1.5-5.0); HEMOGLOBIN 11.4 g/dL (12.0-16.0); LYMPH # 1.4 (1.2-3.4); LYMPH % 16.3 % (22.0-35.0); MEAN CELL VOLUME 80.7 fl (80.0-105.0); MEAN CORPUSCULAR HEMOGLOBIN 25.6 pg (25.0-35.0); MEAN CORPUSCULAR HGB CONC 31.8 g/dl (31.0-37.0); MONO # 0.6 (0.1-0.6); RBC 4.45 10^6/uL (3.5-6.1); RED CELL DISTRIBUTION WIDTH 15.6 % (11.5-14.5); WHITE BLOOD COUNT 8.3 10^3/uL (4.5-11.0)
[2018-08-17 04:51] LABS: ALB/GLOB RATIO 1.2 (1.1-1.8); ALT/SGPT 23 U/L (7-56); AST/SGOT 152 U/L (14-36); BLOOD UREA NITROGEN 16 mg/dL (7-21); CALCIUM 9.2 mg/dL (8.4-10.5); GFR NON-AFRICAN AMERICAN > 60
[2018-08-17] MEDS: oxyCODONE 5 mg Immediate Release Tab PO PRN ×3 (05:07→19:52)
--- NOTE | 2018-08-17 08:12 | CON ---
DATE: 08/16/2018 CARDIOLOGY CONSULTATION REASON FOR CONSULTATION: Unstable angina, rule out non-ST segment myocardial infarction, coronary artery disease. BRIEF CLINICAL HISTORY: This is an 82-year-old female with past medical history significant for coronary artery disease, status post stent in the past, who recently had epidural injection yesterday by Dr. Myles Sarmiento, and was off aspirin and Plavix for 5 days. The patient was happening chest pain off and on and was taking nitroglycerin even before the patient was on aspirin and Plavix, but yesterday the patient had more chest pain this morning and did not relieve with 3 nitroglycerin, so the patient came to the emergency room where EKG found to be ST-T wave changes and borderline positive troponin; so ER was called for cardiac evaluation, troponin 0.34. The patient currently denies any chest pain. He states that 3 nitroglycerin and chest pain since subsided. PAST MEDICAL HISTORY: Past history significant for non-STEMI where the patient underwent drug-eluting stent and RCA and balloon angioplasty of proximal RCA for in-stent restenosis dated 05/2015, history of hypertension, history of hyperlipidemia, history of arthritis, and history of back pain. CURRENT MEDICATIONS: The patient is taking oxycodone, amlodipine, Crestor, nitroglycerin, metoprolol, isosorbide mononitrate nitrate, insulin, diclofenac, clopidogrel and aspirin. The patient was off aspirin and Plavix for 5 days. RECENT CARDIAC WORKUP: As follows; the patient had an echocardiography done on 05/30/2018 that showed ejection fraction of 55% to 60%, trace aortic regurgitation, aortic sclerosis, mild aortic stenosis, [id number] mitral regurgitation, trace to mild tricuspid regurgitation systolic pressure of 37, status post non-STEMI, ejection fraction 55% to 60%. The patient has a cardiac catheterization on 05/30/2018, when the patient underwent cardiac catheterization and patient went attempting of circumflex unsuccessful, PRU was 155 consistent with patient is sensitive to Plavix. The patient had previous PCI on 05/27/2015 and 03/2018, hypertension, hyperlipidemia, history of recently PTCA of left main at [facility] with Impella on 03/2018 and the patient had PTCA of RCA in 05/27/2018. Most recent cardiac catheterization revealed right-sided dominant artery, left main has diffuse calcification throughout vessel, patent stent in the left proximal LAD and circumflex, patent stenting in proximal and mid LAD noted, circumflex 95% stenosis in the ostial segment with mid circumflex is occluded, 100% stenosis in the proximal segment, mid segment circumflex totally occluded, LAD and RCA, right coronary artery is medium size vessel shows intimal irregularity, patent stent in proximal and mid and distal RCA, LV function ejection fraction 55%. Conclusion was single-vessel disease, proximal circumflex 95% and mid circumflex 100% occluded, had collateral LAD and RCA, patent stent in left main LAD and proximal mid and distal RCA, ejection fraction 55%. EDP was ranges at 12, unable to cross circumflex PI was 155. Medical treatment recommended. SOCIAL HISTORY: Denies smoking. Denies history of alcohol abuse. PHYSICAL EXAMINATION: GENERAL: Height of the patient 5 feet, weight of the patient 149 pounds, body mass index 29.3 kg/m2. VITAL SIGNS: Temperature afebrile, heart rate 75, blood pressure 158/86. HEENT: PERRLA. Extraocular muscles intact. NECK: Supple. No carotid bruits or thyromegaly. CHEST: Clear to auscultation. HEART: S1 and S2 regular. ABDOMEN: Soft. EXTREMITIES: Clubbing and cyanosis, negative. LABORATORY DATA: EKG shows normal sinus ST-T changes in anterior lead. Blood workup; WBC 7.4, hemoglobin 12, hematocrit 37.1, platelet count 275. Chemistry shows sodium 133, potassium 3.9, chloride 106, carbon dioxide of 21, anion gap of 14, BUN 16, creatinine 0.5, troponin is 0.34. EKG as mentioned above. IMPRESSION: An 82-year-old female with past medical history significant for coronary artery disease, status post multiple stent, stent in right coronary artery in the past 2014 and recently in March. The patient had stent in left main and left anterior descending artery. The patient had unstable angina and then patient had repeat cardiac catheterization in 05/2018. Ostial circumflex has a disease and distal circumflex has total occluded, unable to cross. Medical treatment recommended. She had admitted with unstable angina. The patient was off aspirin and Plavix for 5 days for epidural. Yesterday, the patient's epidural and now admitted with chest and ST-T changes, unstable angina. RECOMMENDATIONS: We will start aspirin, Plavix, and heparin. Discussed with Dr. Myles Sarmiento, he said okay to safe and we start heparin. We will continue beta-maira. Follow the trend of troponin, if the troponin is borderline and probably treat medically, if troponin trend up we consider re-cardiac catheterization. We will follow with you. Further recommendation depend on the hospital course. Discussed with the staff and discussed with the patient. Sarina Montano MD MTDD
[2018-08-17] MEDS: Insulin Reg-MEDIUM-Coverage SC SCH ×4 (08:30→21:58)
[2018-08-17] MEDS: Pantoprazole 40 mg EC Tab PO SCH ×2 (08:33→10:26)
--- NOTE | 2018-08-17 10:04 | CARD ---
APPROVED REPORT Date of service: 08/17/2018 EKG Measurement Heart [id number] <Conclusion> Marked baseline artifact Probable sinus rhythm Leftward axis Artifact precludes any further interpretation Advise repeat study Abnormal ECG
--- NOTE | 2018-08-17 10:09 | CARD ---
APPROVED REPORT Date of service: 08/16/2018 EKG Measurement Heart [id number] <Conclusion> Normal sinus rhythm Normal ECG
[2018-08-17] MEDS: Heparin25000 units/250ml 1/2NS 25,000 UNITS/250 ML BAG IV SCH (12:40)
--- NOTE | 2018-08-17 13:44 | CP.PCM.APN ---
Subjective - Date & Time of Evaluation Date of Evaluation: 08/17/18 Time of Evaluation: 10:10 - Subjective Subjective: pt seen and examined at bedside . pt reports felling much better but expresses some fear of having cath in am . pt deneis cp or sob at this time Review of Systems - Review of Systems All systems: reviewed and no additional remarkable complaints except - Cardiovascular Cardiovascular: As Per HPI, Chest Pain, Chest Pain at Rest. absent: Acrocyanosis, Chest Pain with Activity, Claudication, Diaphoresis, Dyspnea, Dyspnea on Exertion, Edema, Irregular Heart Rhythm, Pain Radiating to Arm/Neck/Jaw, Leg Edema, Leg Ulcers, Lightheadedness, Orthopnea, Palpitations, Paroxysmal Nocturnal Dyspnea, Pedal Edema, Radiating Pain, Rapid Heart Rate, Slow Heart Rate, Syncope, Other Objective - Vital Signs/Intake and Output Vital Signs (last 24 hours): Temp Pulse Resp BP Pulse Ox 97.9 F 66 18 128/63 97 08/17/18 12:00 08/17/18 12:38 08/17/18 12:00 08/17/18 12:38 08/17/18 06:00 Intake and Output: 08/17/18 08/17/18 06:59 18:59 Intake Total 920 115 Output Total 401 Balance 519 115 - Medications Medications: Current Medications Amlodipine Besylate (Norvasc) 10 mg PO DAILY [facility] Last Admin: 08/17/18 10:28 Dose: 10 mg Aspirin (Ecotrin) 81 mg PO DAILY [facility] Last Admin: 08/17/18 10:25 Dose: Not Given Atorvastatin Calcium (Lipitor) 40 mg PO DAILY [facility] Last Admin: 08/17/18 10:26 Dose: Not Given Clopidogrel Bisulfate (Plavix) 75 mg PO DAILY [facility] Last Admin: 08/17/18 10:27 Dose: 75 mg Heparin Sodium/Sodium Chloride (Heparin 76855 Units/250ml 1/2 Normal Saline) 25,000 units in 250 mls @ 8.154 mls/hr IV .Q24H [facility]; Protocol Stop: 08/18/18 04:00 Last Admin: 08/17/18 12:40 Dose: 11 units/kg/hr, 7.474 mls/hr Insulin Human Regular (Humulin R Med) 0 units SC ACHS [facility]; Protocol Last Admin: 08/17/18 12:32 Dose: 5 u Isosorbide Mononitrate (Imdur) 60 mg PO DAILY [facility] Last Admin: 08/17/18 10:26 Dose: Not Given Lisinopril (Zestril) 5 mg PO DAILY [facility] Last Admin: 08/17/18 12:38 Dose: 5 mg Metoprolol Tartrate (Lopressor) 25 mg PO BID [facility] Last Admin: 08/17/18 10:26 Dose: Not Given Oxycodone HCl (Oxycodone Immediate Release Tab) 15 mg PO Q6H PRN PRN Reason: Pain, severe (8-10) Last Admin: 08/17/18 12:33 Dose: 15 mg Pantoprazole Sodium (Protonix Ec Tab) 40 mg PO DAILY [facility] Last Admin: 08/17/18 10:26 Dose: Not Given - Labs Labs: 08/17/18 03:05 08/17/18 03:05 PT 11.4 SECONDS (9.4-12.5) 08/16/18 10:00 INR 1.01 08/16/18 10:00 APTT 52.5 Seconds (26.9-38.3) H 08/17/18 10:30 - Constitutional Appears: No Acute Distress - ENT Exam ENT Exam: Mucous Membranes Moist - Respiratory Exam Respiratory Exam: Decreased Breath Sounds, NORMAL BREATHING PATTERN - Cardiovascular Exam Cardiovascular Exam: +S1, +S2 - GI/Abdominal Exam GI & Abdominal Exam: Soft, Normal Bowel Sounds - Extremities Exam Extremities Exam: Full ROM, Normal Capillary Refill - Neurological Exam Neurological Exam: Alert, Awake, Oriented x3 - Skin Skin Exam: Dry, Intact Assessment and Plan - Assessment and Plan (Free Text) Plan: 82 yr old white female wit h sig for dm, back pain, htn, hld, NSTEMi with ANDRESSA to RCA and Balloon angioplasty to instent restenosis of RCA, dm, htn, anxiety and depression who had stopped taking her antiplatelet therapy x 5 days for epidural procedure now admitted with unstable angina/ cp with left arm radiatin NSTEMI with trop at 37.00 on admission. pt is now admitted and undergoing cardiology evaltion with plans for cardiac cath in am to assess for instent restenosis vs new coronary lesion. #NSTEMI iV heparin , Nitrates dual antiplatelet therapy resumed plan for cath in am at 10:30 #HTN stable on current regimen of BB, CCB, ARGENIS #HLD statin therapy will follow clinical course , discuss with CM BPCI/TIC - BPCIA/TIC Educated pt/family on BPCIA/CIR/Med to Bed Programs: Yes Flyers given, including CMS Beneficiary letter: Yes Pt/family verbalized understanding & agreed to program: Yes
--- NOTE | 2018-08-17 15:43 | PN ---
DATE: 08/17/2018 REASON FOR CONSULTATION AND FOLLOWUP: Unstable angina, non-ST segment myocardial infarction, and coronary artery disease. SUBJECTIVE: The patient denies any chest pain now. Feels a little something in the throat, but no chest pain, shortness of breath, no palpitations. PHYSICAL EXAMINATION: GENERAL: Not in apparent distress. Lying comfortable in the bed. VITAL SIGNS: Temperature afebrile, heart rate 58, blood pressure 174/67. HEENT: PERRLA. Extraocular muscles intact. NECK: Supple. No carotid bruit, no thyromegaly. CHEST: Clear to auscultation. HEART: S1 and S2, regular. ABDOMEN: Soft. EXTREMITIES: Clubbing and cyanosis, negative. LABORATORY DATA: Blood workup as follows; WBC 8.3, hemoglobin 11.5, hematocrit 35.9, platelet count 253. Chemistries show sodium 130, potassium 3.9, chloride 107, carbon dioxide 27, anion gap of 9, BUN 16, creatinine 0.6., glucose 208, and calcium 9.2, phosphorus 3.1, magnesium 2.8, troponin 22.9. EKG this morning pending. IMPRESSION: An 82-year-old female with past medical history significant for non-ST elevation myocardial infarction, history of percutaneous transluminal coronary angioplasty for right coronary artery on 05/2015, history of recent in 03/2018 stent in the left main followed by patient admitted with non-ST elevation myocardial infarction on 03/2018 underwent catheterization and attempted percutaneous transluminal coronary angioplasty of the circumflex totally occluded. On arrival, the patient was off of Plavix 5 days, epidural came in here with unstable angina, non-ST segment myocardial infarction, maximum troponin of 37, now troponin is trending down. The patient is sensitive to Plavix, last PRU was found to be 155, consider sensitive to Plavix. RECOMMENDATION: Continue aspirin, continue Plavix, continue heparin. Will get echo to assess if anything was done recently. If not, then we will get another echo with cardiac catheterization tomorrow. Risks, benefits, and alternative were discussed with the patient, will talk to the family as well. In the interim, continue aspirin, continue Imdur, continue atorvastatin, continue metoprolol and We will add on lisinopril, monitor renal function, p.r.n. hydralazine. We will follow with you. The patient was on amlodipine 10 mg. Will resume back on amlodipine 10 and will give 5 of lisinopril as well. Will keep her n.p.o. after 12 midnight for cardiac catheterization tomorrow. We will hold heparin at 4 am. Old chart review, patient had a last echo 05/30/2018 that revealed ejection fraction 55-60%, trace aortic regurgitation, aortic sclerosis, mild aortic stenosis, [id number] mitral regurgitation, trace to mild tricuspid regurgitation. So we will not order echo for now. Continue isosorbide nitrate, continue metoprolol 25 p.o. b.i.d. We will discontinue nitroglycerin, Imdur started. Thank you, Dr. Del Rio, for providing us the opportunity in taking care of the patient, Vince Dobson. Sarina Montano MD
[2018-08-18] MEDS: oxyCODONE 5 mg Immediate Release Tab PO PRN ×3 (01:52→18:03)
[2018-08-18 07:16] LABS: BASO # 0.02 K/mm3 (0.0-2.0); BASO % 0.4 % (0.0-3.0); EOS # 0.1 (0.0-0.7); HEMOGLOBIN 11.1 g/dL (12.0-16.0); LYMPH # 1.4 (1.2-3.4); LYMPH % 27.3 % (22.0-35.0); MEAN CELL VOLUME 81.6 fl (80.0-105.0); MEAN CORPUSCULAR HEMOGLOBIN 25.2 pg (25.0-35.0); MEAN CORPUSCULAR HGB CONC 30.9 g/dl (31.0-37.0); MONO # 0.5 (0.1-0.6); RBC 4.4 10^6/uL (3.5-6.1); RED CELL DISTRIBUTION WIDTH 15.8 % (11.5-14.5)
[2018-08-18 07:36] LABS: ALB/GLOB RATIO 1.3 (1.1-1.8); ALBUMIN 3.8 g/dL (3.0-4.8); ALT/SGPT 26 U/L (7-56); AST/SGOT 79 U/L (14-36); BLOOD UREA NITROGEN 20 mg/dL (7-21); CALCIUM 9.3 mg/dL (8.4-10.5); GFR NON-AFRICAN AMERICAN > 60
--- NOTE | 2018-08-18 07:49 | CP.PCM.PN ---
Subjective - Date & Time of Evaluation Date of Evaluation: 08/18/18 Time of Evaluation: 06:30 - Subjective Subjective: Awake, alert, no distress, anxious about cardiac cath today Reason for consultation and follow up: Cardiac evaluation of chest pain and shortness of breath Seen and examined by me and Dr. Montano Objective - Vital Signs/Intake and Output Vital Signs (last 24 hours): Temp Pulse Resp BP Pulse Ox 98.0 F 54 L 50 H 138/59 L 95 08/18/18 06:00 08/18/18 06:00 08/18/18 06:00 08/18/18 06:00 08/18/18 06:00 Intake and Output: 08/18/18 08/18/18 06:59 18:59 Intake Total 1412 Output Total 940 Balance 472 - Medications Medications: Current Medications Amlodipine Besylate (Norvasc) 10 mg PO DAILY [facility] Last Admin: 08/17/18 10:28 Dose: 10 mg Aspirin (Ecotrin) 81 mg PO DAILY [facility] Last Admin: 08/17/18 10:25 Dose: Not Given Atorvastatin Calcium (Lipitor) 40 mg PO DAILY [facility] Last Admin: 08/17/18 10:26 Dose: Not Given Clopidogrel Bisulfate (Plavix) 75 mg PO DAILY [facility] Last Admin: 08/17/18 10:27 Dose: 75 mg Insulin Human Regular (Humulin R Med) 0 units SC [facility]; Protocol Last Admin: 08/17/18 21:58 Dose: Not Given Isosorbide Mononitrate (Imdur) 60 mg PO DAILY [facility] Last Admin: 08/17/18 10:26 Dose: Not Given Lisinopril (Zestril) 5 mg PO DAILY [facility] Last Admin: 08/17/18 12:38 Dose: 5 mg Metoprolol Tartrate (Lopressor) 25 mg PO BID [facility] Last Admin: 08/17/18 17:48 Dose: 25 mg Oxycodone HCl (Oxycodone Immediate Release Tab) 15 mg PO Q6H PRN PRN Reason: Pain, severe (8-10) Last Admin: 08/18/18 01:52 Dose: 15 mg Pantoprazole Sodium (Protonix Ec Tab) 40 mg PO DAILY [facility] Last Admin: 08/17/18 10:26 Dose: Not Given - Labs Labs: 08/18/18 07:05 08/18/18 07:05 PT 11.4 SECONDS (9.4-12.5) 08/16/18 10:00 INR 1.01 08/16/18 10:00 APTT 51.8 Seconds (26.9-38.3) H 08/17/18 17:15 - Constitutional Appears: Non-toxic, No Acute Distress - Head Exam Head Exam: NORMAL INSPECTION, NORMOCEPHALIC - Eye Exam Eye Exam: Normal appearance Pupil Exam: NORMAL ACCOMODATION - ENT Exam ENT Exam: Mucous Membranes Moist, Normal Exam - Respiratory Exam Respiratory Exam: Clear to Ausculation Bilateral, NORMAL BREATHING PATTERN - Cardiovascular Exam Cardiovascular Exam: Bradycardia, +S1, +S2 Additional comments: Telemetry SB 50's denies chest pain - GI/Abdominal Exam GI & Abdominal Exam: Soft, Normal Bowel Sounds - Extremities Exam Extremities Exam: Full ROM, Normal Capillary Refill Additional comments: chronic left hip pain - Neurological Exam Neurological Exam: Alert, Awake, Oriented x3 - Psychiatric Exam Psychiatric exam: Normal Affect, Normal Mood - Skin Skin Exam: Dry, Normal Color, Warm Assessment and Plan - Assessment and Plan (Free Text) Assessment: An 82 year old female who came in to the ER due to chest pain and shortness of breath. She just had an epidural injection by Dr. Sarmiento 2 days ago and was off Plavix and Aspirin 5 days prior to procedure. She was having off and on chest pain prior to admission but worsened and came to the ER. Troponin elevated, positive. EKG with ST-T wave changes. Non-STEMI. History of coronary artery disease post stents, hypertension, hyperlipidemia, arthritis, history of back pain requiring epidural injections to manage pain. Recent cardiac work up done at [facility] [place]. Echo 05/30/18 showed LVEF 55-60%. proximal septal thickening, trace AR,moderate MR,mild TR RVSP 37 mmHg. Last cardiac cath done on 05/30/18 for Non STEMI showed ostial circumflex 95% occluded,mid Circumflex 100 occluded with collaterals from RCA, could not cross ostial circumflex. She was treated medically at that time. History of drug eluding stent of RCA and balloon angioplasty of proximal RCA in stent restenosis in 2014. Today admitted for Non STEMI, for cardiac cath today.Denies chest pain. Plan: Denies chest pain, anxious about procedure For cardiac cath today Heart rate controlled Blood pressure controlled On Norvasc 10 mg daily,ASA 81 mg daily, Plavix 75 mg daily, Lipitor 40 mg daily,Imdur 60 mg daily,Lisinopril 5 mg daily, Lopressor 25 mg BID Continue current medications Continue current treatment Will follow up Further recommendation post cath Plan and treatment discussed with Dr. Montano
[2018-08-18 08:01] LABS: TROPONIN I 5.64 ng/mL
[2018-08-18] MEDS: Insulin Reg-MEDIUM-Coverage SC SCH ×4 (08:22→21:53)
--- NOTE | 2018-08-18 09:34 | PN ---
DATE: 08/17/2018 SUBJECTIVE: The patient is an 82-year-old female who was admitted to the [facility] [place] on 08/16/2018 with a NSTEMI. The patient developed chest pain, was not relieved by sublingual nitroglycerin x3 doses, therefore she presented to the emergency room, she was evaluated and admitted. During the hospital stay, the troponin levels went up to 22.9 this morning, she is being followed by Dr. Montano and she is scheduled for coronary catheterization in the morning. The patient is known to have a past medical history positive for coronary artery disease, diabetes mellitus, COPD, osteoarthritis, anxiety and depression. She is status post hysterectomy and status post cholecystectomy. When seen, the patient is lying in bed. She voices no complaints. She is comfortable. However, she is very anxious and nervous about tomorrow's procedure. PHYSICAL EXAMINATION: VITAL SIGNS: Blood pressure is 174/67, heart rate is 68 and she is afebrile. LUNGS: Clear anteriorly. HEART: Regular. ABDOMEN: Soft and nontender. LABORATORY STUDIES: Morning laboratory studies show the white blood cell count to be 8.3, hemoglobin and hematocrit are 11.4 and 35.9 respectively, platelet count is 253. Sodium is 138, potassium 3.9, blood urea nitrogen is 16, the creatinine is 0.6, glucose is 208. Her admitting EKG showed regular sinus rhythm with ST depressions. Chest x-ray showed no acute disease. Her troponins this morning as of as mentioned above were 22.9. So the patient was reassured about tomorrow's procedure. She is asking to be sedated during the procedure and we will continue to follow the patient closely and discussed with Dr. Montano in the a.m. Stas Del Rio MD
[2018-08-18] MEDS ORDERED: Iohexol 350mgl/ml 50 ML ONE (10:13)
[2018-08-18] MEDS ORDERED: Lidocaine 2% Inj (20ml) ONE (10:13)
[2018-08-18] MEDS ORDERED: Iodixanol 320 MG/ML 100 ML BOTTLE IV ONE (10:13)
[2018-08-18] MEDS ORDERED: Phenylephrine 10 mg/ml Inj ONE (10:13)
[2018-08-18] MEDS ORDERED: Iodixanol 320 MG/ML 200 ML BOTTLE IV ONE (10:14)
[2018-08-18] MEDS ORDERED: Nitroglycerin 50mg in D5W 0 MG/0 ML BOTTLE IV ONE (10:14)
[2018-08-18] MEDS ORDERED: Morphine 2 mg/ml ISec ONE ×2 (11:18→11:28)
[2018-08-18] MEDS ORDERED: Midazolam 2 MG/2 ML VIAL ONE (11:20)
[2018-08-18] MEDS ORDERED: Sodium Chloride 0.9% 1,000 ML IV SCH (11:45)
--- NOTE | 2018-08-18 12:32 | CPOSTOP ---
DATE: 08/18/2018 CARDIOVASCULAR LAB POSTPROCEDURE NOTE PHYSICIAN: Sarina Montano MD SAP BW ARCHITECT: CORNELIUS García. TYPE OF ANESTHESIA: Moderate conscious sedation. Total 3 mg of morphine, 2 mg of Versed and 100 of fentanyl given periodically. Started 1 mg of Versed and 50 of fentanyl. PRE-PROCEDURE DIAGNOSES: Unstable angina, edk-ZL-tzyygpy myocardial infarction, history of multiple stents in the past. PROCEDURE PERFORMED: Left heart catheterization. FINDINGS: Patent stent in left main, patent stent in LAD, circumflex totally occluded chronic very well collateralized from RCA, patent stent in RCA, decreased LV function, ejection fraction of 45%. FINAL DIAGNOSES: Single vessel critical disease, circumflex totally occluded chronic total occlusion, very well collateralized from right coronary artery. POST PROCEDURE CONDITION: The patient's condition is stable. VASCULAR ACCESS SITE: Left femoral artery. CLOSURE DEVICE: Mynx. TOTAL RADIATION DOSE: 6123.6 milligray unit. TOTAL FLUORO TIME: 1.7 minutes. Sarina Montano MD
[2018-08-18] MEDS: Pantoprazole 40 mg EC Tab PO SCH (12:39)
--- NOTE | 2018-08-18 15:15 | CARD ---
APPROVED REPORT Date of service: 08/18/2018 EKG Measurement Heart [id number] <Conclusion> Uniterpretable ECG due to severe baseline artifact Needs repeat study
--- NOTE | 2018-08-18 18:49 | CARD ---
APPROVED REPORT Date of service: 08/18/2018 Procedure(s) performed: Left Heart Catheterization HISTORY The patient is a 82 year-old female with a history of : previous SD (> 7 days), most recent EF: 55%. (EF Method: LVG), diabetes mellitus with insulin treatment , chronic lung disease, previous diagnostic cath, previous PCI (The PCI date was 05/27/2015), hypertension , dyslipidemia , Admitted with NSTEMI with a maximum troponin of 25.0 after interruption of DAP for epidural injection, Hx of left main stent with Impella on 03/2018, and RCA 05/27/2015 after NSTEMI, ebony-op for Hip surgery ( right Hip ).. INDICATION The indication(s) include : non-STEMI . CASE TECHNIQUE The patient was brought emergently to the Cardiac Catheterization Laboratory in a fasting state and was prepped and draped in a sterile manner. The left femoral groin was infiltrated with 2% Lidocaine subcutaneous anesthesia. A 6 Fr x 11 cm Yuki sheath was inserted into the left femoral artery without difficulty. Coronary angiography was performed using coronary diagnostic catheters. The left coronary system was accessed and visualized with a Diagnostic,6F JL4 CATH DXT 100 CM catheter. The right coronary system was accessed and visualized with a 6F JR 4 CATH DXT 100 CM catheter. The left ventricle was accessed and visualized with a 6F JR 4 CATH DXT 100 CM catheter. Left ventricular/Aortic Valve gradient assessed on pullback. Left ventriculogram was performed in CERVANTES projection. Closure device was deployed with a 6 Fr / 7 Fr MynxGrip without any complications. The patient tolerated the procedure well and there were no complications associated with the procedure. Vessel Analysis The patient's coronary anatomy is right dominant. The left main coronary artery is a medium size vessel with diffuse calcification noted throughout this vessel and without significant stenosis. Patent stent Noted The left main bifurcates to the left anterior descending and circumflex. The left anterior descending artery is a medium size vessel with diffuse calcification noted throughout this vessel and without significant stenosis. Patent stents noted in Proximal to Mid LAD The first diagonal branch is a small size vessel with diffuse calcification noted throughout this vessel and without significant stenosis. The second diagonal branch is a small size vessel with diffuse calcification noted throughout this vessel and without significant stenosis. The third diagonal branch is a small size vessel with diffuse calcification noted throughout this vessel and without significant stenosis. The circumflex artery is a medium size vessel with diffuse calcification noted throughout this vessel and with significant stenosis. Multiple stents noted There is a 100% stenosis in the ostial segment. Cx is well collateralized from LAD and CX. The right coronary artery is a large size vessel with diffuse calcification noted throughout this vessel and without significant stenosis. Multiple stents noted Proximal, Mid and distal which are patent The right posterior descending artery is a large size vessel with diffuse calcification noted throughout this vessel and without significant stenosis. The right posterolateral branch is a large size vessel with diffuse calcification noted throughout this vessel and without significant stenosis. Left Ventricle The left ventricle is borderline in size with mildly decreased contractility. Ischemic cardiomyopathy. The left ventricular ejection fraction is estimated to be 45-50%. The left ventricular end diastolic pressure is 16 mmHg. There was no gradient across the aortic valve upon pullback. Conclusion Cx totally Occluded at Ostium, but very collateralized from LAD and RCA. Patent stents in left main , LAD and RCA Mildly decreased LV FX,. EF_45-50%. Cx is not suitable for PCI b/c of Left main stent. When comparisson made from previous cath 05/30/2018, Cx had ostial 95% stenosis and Mid Cx was occluded,but Cx is totally occluded now at Ostium.( recent NSTEMI). Recommendations Daily ASA with Plavix for at least one year Aggressive Medical TherapyCardiac Risk Reduction Program Weight Loss Reduction Program Monitor LV Fx closely to assess Need for AICD in future. CC; Dr.E Eliane GONZALEZ / Beau Long MD.
[2018-08-18 19:41] LABS: BASO # 0.01 K/mm3 (0.0-2.0); BASO % 0.2 % (0.0-3.0); EOS # 0.1 (0.0-0.7); EOS % 1.3 % (1.5-5.0); HEMOGLOBIN 9.9 g/dL (12.0-16.0); LYMPH # 0.8 (1.2-3.4); LYMPH % 16.1 % (22.0-35.0); MEAN CELL VOLUME 81.7 fl (80.0-105.0); MEAN CORPUSCULAR HEMOGLOBIN 25.1 pg (25.0-35.0); MEAN CORPUSCULAR HGB CONC 30.7 g/dl (31.0-37.0); MEAN PLATELET VOLUME 8.9 fl (7.0-11.0); MONO # 0.4 (0.1-0.6); RBC 3.94 10^6/uL (3.5-6.1); RED CELL DISTRIBUTION WIDTH 15.6 % (11.5-14.5); WHITE BLOOD COUNT 4.8 10^3/uL (4.5-11.0)
[2018-08-18 19:57] LABS: BLOOD UREA NITROGEN 16 mg/dL (7-21); CALCIUM 8.7 mg/dL (8.4-10.5); GFR NON-AFRICAN AMERICAN > 60
[2018-08-19 06:46] VITALS: RESP 18
[2018-08-19 06:59] LABS: BASO # 0.01 K/mm3 (0.0-2.0); BASO % 0.2 % (0.0-3.0); EOS # 0.1 (0.0-0.7); HEMOGLOBIN 10.5 g/dL (12.0-16.0); LYMPH # 1.2 (1.2-3.4); LYMPH % 21.7 % (22.0-35.0); MEAN CELL VOLUME 82.5 fl (80.0-105.0); MEAN CORPUSCULAR HEMOGLOBIN 25.9 pg (25.0-35.0); MEAN CORPUSCULAR HGB CONC 31.3 g/dl (31.0-37.0); MEAN PLATELET VOLUME 9.2 fl (7.0-11.0); MONO # 0.5 (0.1-0.6); MONO % 9.7 % (1.0-6.0); RBC 4.06 10^6/uL (3.5-6.1); RED CELL DISTRIBUTION WIDTH 15.6 % (11.5-14.5); WHITE BLOOD COUNT 5.5 10^3/uL (4.5-11.0)
[2018-08-19 07:39] LABS: ALB/GLOB RATIO 1.2 (1.1-1.8); ALBUMIN 3.5 g/dL (3.0-4.8); ALT/SGPT 35 U/L (7-56); AST/SGOT 63 U/L (14-36); BLOOD UREA NITROGEN 14 mg/dL (7-21); CALCIUM 9.1 mg/dL (8.4-10.5); GFR NON-AFRICAN AMERICAN > 60; TROPONIN I 4.05 ng/mL
--- NOTE | 2018-08-19 07:59 | CP.PCM.PN ---
Subjective - Date & Time of Evaluation Date of Evaluation: 08/19/18 Time of Evaluation: 06:45 - Subjective Subjective: Awake, alert, no distress, Reason for consultation and follow up: Cardiac evaluation of chest pain and shortness of breath, post cardiac catheterization Seen and examined by me and Dr. Montano Objective - Vital Signs/Intake and Output Vital Signs (last 24 hours): Temp Pulse Resp BP Pulse Ox 97.8 F 72 18 134/79 98 08/19/18 06:00 08/19/18 06:00 08/19/18 06:00 08/19/18 06:00 08/19/18 06:00 Intake and Output: 08/19/18 08/19/18 06:59 18:59 Intake Total 480 Output Total 700 Balance -220 - Medications Medications: Current Medications Amlodipine Besylate (Norvasc) 10 mg PO DAILY [facility] Last Admin: 08/18/18 12:40 Dose: 10 mg Aspirin (Ecotrin) 81 mg PO DAILY [facility] Last Admin: 08/18/18 10:37 Dose: Not Given Atorvastatin Calcium (Lipitor) 40 mg PO DAILY [facility] Last Admin: 08/18/18 12:40 Dose: 40 mg Clopidogrel Bisulfate (Plavix) 75 mg PO DAILY [facility] Last Admin: 08/18/18 10:38 Dose: Not Given Insulin Human Regular (Humulin R Med) 0 units [facility]; Protocol Last Admin: 08/18/18 21:53 Dose: Not Given Isosorbide Mononitrate (Imdur) 60 mg PO DAILY [facility] Last Admin: 08/18/18 12:39 Dose: 60 mg Lisinopril (Zestril) 5 mg PO DAILY [facility] Last Admin: 08/18/18 12:39 Dose: 5 mg Metoprolol Tartrate (Lopressor) 25 mg PO BID [facility] Last Admin: 08/18/18 18:03 Dose: 25 mg Oxycodone HCl (Oxycodone Immediate Release Tab) 15 mg PO Q6H PRN PRN Reason: Pain, severe (8-10) Last Admin: 08/19/18 00:00 Dose: 15 mg Pantoprazole Sodium (Protonix Ec Tab) 40 mg PO DAILY [facility] Last Admin: 08/18/18 12:39 Dose: 40 mg - Labs Labs: 08/19/18 06:30 08/19/18 06:30 PT 11.4 SECONDS (9.4-12.5) 08/16/18 10:00 INR 1.01 08/16/18 10:00 APTT 51.8 Seconds (26.9-38.3) H 08/17/18 17:15 - Constitutional Appears: Non-toxic, No Acute Distress - Head Exam Head Exam: NORMAL INSPECTION, NORMOCEPHALIC - Eye Exam Eye Exam: Normal appearance Pupil Exam: NORMAL ACCOMODATION - ENT Exam ENT Exam: Mucous Membranes Moist, Normal Exam - Respiratory Exam Respiratory Exam: Clear to Ausculation Bilateral, NORMAL BREATHING PATTERN - Cardiovascular Exam Cardiovascular Exam: Bradycardia, +S1, +S2 - GI/Abdominal Exam GI & Abdominal Exam: Soft, Normal Bowel Sounds - Extremities Exam Extremities Exam: Full ROM - Neurological Exam Neurological Exam: Alert, Awake, Oriented x3 - Psychiatric Exam Psychiatric exam: Normal Affect, Normal Mood - Skin Skin Exam: Dry, Normal Color, Warm Assessment and Plan - Assessment and Plan (Free Text) Assessment: An 82 year old female who came in to the ER due to chest pain and shortness of breath. She just had an epidural injection by Dr. Sarmiento 2 days ago and was off Plavix and Aspirin 5 days prior to procedure. She was having off and on chest pain prior to admission but worsened and came to the ER. Troponin elevated, positive. EKG with ST-T wave changes. Non-STEMI. History of coronary artery disease post stents, hypertension, hyperlipidemia, arthritis, history of back pain requiring epidural injections to manage pain. Recent cardiac work up done at [facility]. Echo 05/30/18 showed LVEF 55-60%. proximal septal thickening, trace AR,moderate MR,mild TR RVSP 37 mmHg. Last cardiac cath done on 05/30/18 for Non STEMI showed ostial circumflex 95% occluded,mid Circumflex 100 occluded with collaterals from RCA, could not cross ostial circumflex. She was treated medically at that time. History of drug eluding stent of RCA and balloon angioplasty of proximal RCA in stent restenosis in 2014. Today admitted for Non STEMI, Post cardiac cath, result showed Circumflex totally occluded, ostium but very collateralized from LAD and RCA, Patent stents in left main,LAD and RCA. LVEF 45-50%. Circumflex not suitable for PCI because of left main stent. Compared to previous cath 05/30/18, circumflex had 95 ostial stenosis and Mid Cx was occluded but not Cx ostium is totally occluded causing the recent NonSTEMI.Optimize medical therapy and monitor EF for possible AICD in the f uture. Denies chest pain. Plan: Denies chest pain Post cardiac cath yesterday Medical treatment Continue Aspirin and Plavix for at least a year Heart rate controlled Blood pressure controlled On Norvasc 10 mg daily,ASA 81 mg daily, Plavix 75 mg daily, Lipitor 40 mg daily,Imdur 60 mg daily,Lisinopril 5 mg daily, Lopressor 25 mg BID Continue current medications Continue current treatment Discharge planning Will follow up Plan and treatment discussed with Dr. Montano
[2018-08-19] MEDS: oxyCODONE 5 mg Immediate Release Tab PO PRN ×3 (08:14→14:34)
[2018-08-19] MEDS: Insulin Reg-MEDIUM-Coverage SC SCH ×3 (08:37→17:43)
[2018-08-19] MEDS: Pantoprazole 40 mg EC Tab PO SCH (09:06)
[2018-08-19] MEDS ORDERED: POLYETHYLENE GLYCOL 3350 17 GM/Dose PACKET PO SCH (10:45)
[2018-08-19] MEDS ORDERED: oxyCODONE 15 mg Immediate Release Tab PO PRN (16:58)
[2018-08-19 17:44] VITALS: BP 135/56
[2018-08-19 18:05] VITALS: PULSE 64; TEMP 98.6; O2SAT 96
--- NOTE | 2018-08-19 23:35 | CON ---
DATE: 08/19/2018 TIME: 6 p.m. CHIEF COMPLAINT/HISTORY OF PRESENT ILLNESS: This is an 82-year-old female who came in with chest pain and had a subsequent catheterization. She is currently stable. I have been asked to evaluate her for peripheral vascular disease. PAST MEDICAL HISTORY: Significant for coronary artery disease, anxiety, diabetes, depression, COPD and osteoarthritis. Her left groin puncture site is stable without evidence of bleeding. Her femoral pulses are palpable. Her popliteal and dorsalis pedis pulses are palpable bilaterally. Ms. Cohen had an KASSIE/PVR exam in 05/2018, which demonstrated calcified vessels but normal PVR waveforms at all levels. Ms. Cohen has numerous somatic complaints. Her current leg pain is not related to arterial insufficiency. She does not need additional vascular testing at this time. Liang Hernández MD MTDD
== END 2018-08-19 19:13 | DRG 282 ==
LOC: ED 09:25 → ERH 12:03 → 2RNO 17:30 → 2RSO 08-18 11:51
PROVIDERS: ADMIT Internal Medicine; ATTEND Internal Medicine
PROC: 4A023N7 Measurement of Cardiac Sampling and Pressure, Left Heart, Percutaneous Approach (ICD-10-PCS; principal; 2018-08-18)
PROC: B211YZZ Fluoroscopy of Multiple Coronary Arteries using Other Contrast (ICD-10-PCS; 2018-08-18)
PROC: B215YZZ Fluoroscopy of Left Heart using Other Contrast (ICD-10-PCS; 2018-08-18)
DX: I21.4 Non-ST elevation (NSTEMI) myocardial infarction (principal); I25.110 Atherosclerotic heart disease of native coronary artery with unstable angina pectoris; J44.9 Chronic obstructive pulmonary disease, unspecified; E10.65 Type 1 diabetes mellitus with hyperglycemia; I25.5 Ischemic cardiomyopathy; I10 Essential (primary) hypertension; E78.5 Hyperlipidemia, unspecified; F32.9 Major depressive disorder, single episode, unspecified; H54.8 Legal blindness, as defined in USA; K21.9 Gastro-esophageal reflux disease without esophagitis; F41.9 Anxiety disorder, unspecified; K44.9 Diaphragmatic hernia without obstruction or gangrene; I25.2 Old myocardial infarction; Z79.4 Long term (current) use of insulin

== ENCOUNTER 2018-08-19 19:13 | Inpatient (IN) | payer OTHER, MEDICAID ==
[2018-08-19] MEDS: oxyCODONE 5 mg Immediate Release Tab PO PRN (20:46)
[2018-08-19] MEDS: Insulin Reg-MEDIUM-Coverage SC SCH (21:29)
[2018-08-20] MEDS: oxyCODONE 5 mg Immediate Release Tab PO PRN ×3 (02:44→16:52)
[2018-08-20] MEDS: Pantoprazole 40 mg EC Tab PO SCH (05:51)
[2018-08-20] MEDS: Insulin Reg-MEDIUM-Coverage SC SCH ×4 (06:47→22:45)
[2018-08-20 07:47] LABS: BASO # 0.01 K/mm3 (0.0-2.0); BASO % 0.2 % (0.0-3.0); EOS # 0.1 (0.0-0.7); EOS % 2.1 % (1.5-5.0); HEMOGLOBIN 10.1 g/dL (12.0-16.0); LYMPH % 15.9 % (22.0-35.0); MEAN CELL VOLUME 81.5 fl (80.0-105.0); MEAN CORPUSCULAR HEMOGLOBIN 25.6 pg (25.0-35.0); MEAN CORPUSCULAR HGB CONC 31.4 g/dl (31.0-37.0); MEAN PLATELET VOLUME 9.1 fl (7.0-11.0); MONO # 0.5 (0.1-0.6); RBC 3.95 10^6/uL (3.5-6.1); RED CELL DISTRIBUTION WIDTH 15.3 % (11.5-14.5); WHITE BLOOD COUNT 6.1 10^3/uL (4.5-11.0)
[2018-08-20 08:15] LABS: ALB/GLOB RATIO 1.1 (1.1-1.8); ALBUMIN 3.5 g/dL (3.0-4.8); ALT/SGPT 24 U/L (7-56); AST/SGOT 49 U/L (14-36); BLOOD UREA NITROGEN 15 mg/dL (7-21); CALCIUM 9.1 mg/dL (8.4-10.5); GFR NON-AFRICAN AMERICAN > 60
[2018-08-20] MEDS: POLYETHYLENE GLYCOL 3350 17 GM/Dose PACKET PO SCH (09:57)
--- NOTE | 2018-08-20 15:57 | CON ---
DATE: 08/20/2018 CARDIOLOGY CONSULTATION REASON FOR CONSULTATION: Recent bbk-DJ-[id number] myocardial infarction and history of coronary artery disease. HISTORY OF PRESENT ILLNESS: The patient is an 82-year-old female who has a history of coronary artery disease status post coronary stenting in the past and recently underwent epidural injection after being off aspirin for 5 days. Subsequently, reported chest pain, which was not relieved by sublingual nitroglycerin and she was admitted with the diagnosis of lnz-RS-xhtqhmgya myocardial infarction. The patient underwent cardiac catheterization by Dr. 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 The patient was transferred to TCU. At the time of my evaluation, the patient denied any chest pain or shortness of breath. SOCIAL HISTORY: Nonsmoker, nondrinker. MEDICATIONS: Aspirin 81 mg once a day, Imdur 60 mg once a day, Lipitor 40 mg once a day, Lopressor 25 mg once a day, Norvasc 10 mg once a day, Plavix 75 mg once a day, Zestril 5 mg once a day. PAST MEDICAL HISTORY: Hypertension, coronary artery disease, chronic low back pain. REVIEW OF SYSTEMS: No fever or chills. No dizziness or syncope. No groin bleeding. PHYSICAL EXAMINATION: GENERAL: The patient is an elderly female who does not appear to be in acute distress. VITAL SIGNS: Blood pressure 137/52, heart rate 58, temperature 98.8, respirations 20. HEENT: Normocephalic. CHEST: Clear. HEART: S1, S2 regular. ABDOMEN: Soft. EXTREMITIES: No edema. LABORATORY DATA: Today's hemoglobin and hematocrit 10.1 and 32.2, white count and platelet count are within normal limit. The SMA-7, sodium 136, potassium 4, chloride 105, CO2 26, glucose 241, BUN 15, creatinine 0.5. Chest x-ray, no active disease. The most recent EKG two days ago, on 08/18/2018, was uninterpretable because of significant baseline artifacts and that applied to the EKG on 08/17/2018. The EKG on 08/16/2018 revealed normal sinus rhythm. The most recent troponin yesterday was 4.05. ASSESSMENT: 1. Status post brh-YQ-ohqnptvfj myocardial infarction. 2. 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 3. Mildly depressed ejection fraction. RECOMMENDATIONS: Resume aspirin 81 mg once a day, Lipitor 40 mg once a day, Lopressor 25 mg once a day, Norvasc 10 mg once a day, Plavix 75 mg once a day and Zestril at 5 mg once a day. Say Perdomo MD
[2018-08-20] MEDS: oxyCODONE 30 mg Immediate Release Tab PO PRN (22:45)
[2018-08-21] MEDS: Pantoprazole 40 mg EC Tab PO SCH (05:12)
[2018-08-21] MEDS: oxyCODONE 30 mg Immediate Release Tab PO PRN ×3 (05:25→20:31)
[2018-08-21] MEDS: Insulin Reg-MEDIUM-Coverage SC SCH ×4 (06:42→22:01)
[2018-08-21] MEDS: POLYETHYLENE GLYCOL 3350 17 GM/Dose PACKET PO SCH (10:21)
--- NOTE | 2018-08-21 13:06 | PN ---
DATE: 08/21/2018 SUBJECTIVE: The patient denies any chest pain or shortness of breath. She did undergo physical therapy today. PHYSICAL EXAMINATION: VITAL SIGNS: Blood pressure 111/52, heart rate 64, temperature 98.9 and respiration 20. HEENT: Normocephalic. CHEST: Clear. HEART: S1 and S2 regular. EXTREMITIES: Trace leg edema. LABORATORY DATA: Today's blood sugars are 190 and 304 respectively. ASSESSMENT: 1. Status post cwk-YN-kaceavbya myocardial infarction. 2. 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 3. Mildly depressed systolic function. 4. Uncontrolled diabetes mellitus. RECOMMENDATIONS: Continue aspirin 81 mg once a day, Lipitor 40 mg once a day, Lopressor 25 mg twice a day, Norvasc 10 mg once a day, Plavix 75 mg once a day and Zestril 5 mg daily. Say Perdomo MD
[2018-08-22] MEDS: Pantoprazole 40 mg EC Tab PO SCH (04:59)
[2018-08-22] MEDS: oxyCODONE 30 mg Immediate Release Tab PO PRN ×3 (04:59→21:22)
[2018-08-22] MEDS: Insulin Reg-MEDIUM-Coverage SC SCH (06:45)
[2018-08-22] MEDS: POLYETHYLENE GLYCOL 3350 17 GM/Dose PACKET PO SCH ×2 (09:54→18:03)
[2018-08-22] MEDS: Insulin Reg-HIGH-Coverage SC SCH ×3 (11:27→21:23)
--- NOTE | 2018-08-22 14:33 | PN ---
DATE: 08/23/2018 REASON FOR CONSULTATION: Vym-BM-cqwiikm myocardial infarction, coronary artery disease, continuity of care in transitional care unit. SUBJECTIVE: The patient denies any chest pain, shortness of breath or any palpitations. OBJECTIVE: GENERAL: Not in apparent distress. VITAL SIGNS: Temperature afebrile, heart rate 64, blood pressure 138/70. HEENT: PERRLA. Extraocular muscles intact. NECK: Supple. No carotid bruit, no thyromegaly. CHEST: Clear to auscultation. HEART: S1, S2. Regular. ABDOMEN: Soft. EXTREMITIES: Clubbing, cyanosis negative. LABORATORY DATA: Blood workup as follows; WBC 6.1, hemoglobin 10.1, hematocrit 32.2, platelet count 196. Chemistries show sodium 130, potassium 4, chloride 105, carbon dioxide 26, anion gap of 9, BUN 15, creatinine 0.5. IMPRESSION: An 82-year-old female with past medical history significant for coronary artery disease status post stent, left main in 02/2018 at [facility] non-ST elevation myocardial infarction and 05/2018 admitted here with non-ST elevation myocardial infarction for cardiac catheterization that revealed circumflex totally occluded, patent stent in left main, patent stent in left anterior descending, patent stent multiple in right coronary artery, medical treatment recommended, preserved left ventricular function; ejection fraction mildly decreased at 45 to 50%. When comparison was made from cath 05/29/2018, circumflex had ostial 95% stenosis, at that time mid circumflex was occluded, now the circumflex is totally occluded that gives a non-ST elevation myocardial infarction. RECOMMENDATION: Continue aggressive medical treatment, made are weight reduction, monitor LV function closely,consider the need for AICD in future. Continue aspirin, Plavix for one year. Continue rest of the medications. Continue baby aspirin 81 mg daily, continue Imdur 60 mg a day, continue atorvastatin 40 mg daily, continue metoprolol 25 mg 8 o'clock and 6:00 p.m., continue amlodipine 10 mg daily, continue oxycodone for back pain, continue Plavix 75 mg daily, continue lisinopril 5 mg daily. We will follow with you. Thank you, Dr. Del Rio, for providing us the opportunity in taking care of the patient, Vince Dobson. Sarina Montano MD [facility] # [id number]
[2018-08-23] MEDS: Pantoprazole 40 mg EC Tab PO SCH (05:18)
[2018-08-23] MEDS: Insulin Reg-HIGH-Coverage SC SCH ×4 (06:34→21:34)
[2018-08-23] MEDS: oxyCODONE 30 mg Immediate Release Tab PO PRN ×2 (08:41→16:34)
[2018-08-23] MEDS: POLYETHYLENE GLYCOL 3350 17 GM/Dose PACKET PO SCH (09:37)
--- NOTE | 2018-08-23 12:27 | PN ---
DATE: 08/22/2018 SUBJECTIVE: The patient is an 82-year-old female who was admitted to the [facility] on 08/16/2018 with a non-STEMI. Troponins became elevated during her hospital stay, she was taken to the catheterization laboratory with Dr. 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 It was found that her previous stents were patent. There was an ostial circumflex that was completely occluded and that was the cause of her myocardial infarction. The patient did well after the procedure and on 08/19/2018 was transferred to the Transitional Care Unit for physical therapy. When seen, the patient is awake, alert and oriented. She is thankful for the increased dose of oxycodone from 15-30 mg which is what she has been accustomed to at home. The patient had severe pain with ambulation. Dr. Liang Hernández was consulted during the hospital stay for possible peripheral vascular disease and it was determined based on previous studies that the patient the patient's vasculature was patent in both legs. The patient has continued pain on ambulation with a walker at home is secondary to spinal stenosis and osteoarthritis for which she requires chronic opiate therapy. We will continue to follow the patient closely and encourage physical therapy. Stas Del Rio MD
--- NOTE | 2018-08-23 14:22 | PN ---
DATE: 08/23/2018 REASON FOR CONSULTATION: Follow up ngj-SQ-whdoeej myocardial infarction, coronary artery disease, continuity of care in transitional care unit. SUBJECTIVE: The patient denies any chest pain, shortness of breath or any palpitations. OBJECTIVE: GENERAL: Not in apparent distress. VITAL SIGNS: Temperature afebrile, heart rate 50, blood pressure 104/64. HEENT: PERRLA. Extraocular muscles intact. NECK: Supple. No carotid bruit. No thyromegaly. CHEST: Clear to auscultation. HEART: S1, S2. Regular. ABDOMEN: Soft. EXTREMITIES: Clubbing, cyanosis negative. LABORATORY DATA: Blood workup; WBC 6.1, hemoglobin 10.1, hematocrit 32.2, platelet count 196. Chemistries show sodium 130, potassium 4, chloride 105, carbon dioxide 26, anion gap of 9, BUN 15, creatinine 0.5. IMPRESSION: An 82-year-old female with past medical history significant for coronary artery disease status post percutaneous transluminal coronary angioplasty of right coronary artery in the past, in 2014, and status post percutaneous transluminal coronary angioplasty of left main at [facility] admitted with non-ST segment myocardial infarction, underwent cardiac catheterization, revealed totally occluded circumflex; medical treatment recommended. Essential unchanged from comparison from 05/29/2018 when the patient was also admitted with non-ST segment myocardial infarction. At that time, circumflex ostial was 95% occluded, mid circumflex is totally occluded. Now the circumflex is totally occluded at the ostium; medical treatment recommended. RECOMMENDATION: Continue aspirin, continue isosorbide mononitrate 60 mg daily, continue atorvastatin 40 mg daily, continue metoprolol 25 p.o. b.i.d., continue amlodipine 10 mg daily, continue Plavix 75 mg daily, continue lisinopril 5 mg daily. Continue . We will follow with you. Thank you, Dr. Del Rio, for providing us the opportunity in taking care of the patient, Vince Cohen. Sarina Montano MD
[2018-08-24] MEDS: oxyCODONE 30 mg Immediate Release Tab PO PRN ×2 (02:52→13:53)
[2018-08-24] MEDS: Pantoprazole 40 mg EC Tab PO SCH (05:32)
[2018-08-24] MEDS: Insulin Reg-HIGH-Coverage SC SCH ×4 (06:47→21:35)
[2018-08-24] MEDS: POLYETHYLENE GLYCOL 3350 17 GM/Dose PACKET PO SCH (10:32)
--- NOTE | 2018-08-24 11:00 | PN ---
DATE: 08/24/2018 REASON FOR CONSULTATION AND FOLLOWUP: Non-ST segment myocardial infarction, coronary artery disease, continuity of care at transitional care unit. SUBJECTIVE: The patient denies any chest pain, shortness of breath, any palpitation. OBJECTIVE: GENERAL: Not in apparent distress. VITAL SIGNS: Temperature afebrile, heart rate and blood pressure 150/67. HEENT: PERRLA. Extraocular muscles intact. NECK: Supple. No carotid bruit. No thyromegaly. CHEST: Clear to auscultation. HEART: S1 and S2 regular. ABDOMEN: Soft. EXTREMITIES: Clubbing and cyanosis, negative. LABORATORY DATA: Blood workup as follows, last blood workup on 08/20/2018, WBC 6.0, hemoglobin 10, hematocrit 32.2 and platelet count 196. Chemistry on 08/20/2018, sodium 130, potassium 4, chloride 105, carbon dioxide 26, anion gap 9, BUN 15 and creatinine 0.5. IMPRESSION: An 82-year-old female with history significant for coronary artery disease, multiple stent admitted non-STEMI, cardiac catheterization, revealed totally occluded circumflex; medical treatment recommended outpatient continuity of care at transitional care unit. RECOMMENDATION: Continue aspirin, continue isosorbide mononitrate, continue atorvastatin 40 mg daily, continue metoprolol 25 p.o. b.i.d., continue amlodipine 10 mg daily, continue Plavix 75 mg daily, continue lisinopril, continue . We will follow with you. Thank you, Dr. Del Rio, for providing us the opportunity in taking care of the patient, Vince Dobson. Sarina Montano MD
--- NOTE | 2018-08-24 13:45 | RAD ---
Date of service: 08/24/2018 PROCEDURE: Pelvis and left hip HISTORY: ambulation pain COMPARISON: 08/07/2015 TECHNIQUE: Three views FINDINGS: There is a left hip prosthesis with a long femoral component. The appearance is unchanged. There is no fracture or loosening and no dislocation. IMPRESSION: No acute findings
[2018-08-24] MEDS ORDERED: oxyCODONE 30 mg Immediate Release Tab PO PRN (18:06)
[2018-08-24] MEDS: oxyCODONE 10 mg Immediate Release Tab PO PRN (21:36)
[2018-08-25] MEDS: Pantoprazole 40 mg EC Tab PO SCH (05:44)
[2018-08-25] MEDS: oxyCODONE 10 mg Immediate Release Tab PO PRN ×3 (06:43→20:01)
[2018-08-25] MEDS: Insulin Reg-HIGH-Coverage SC SCH ×4 (06:44→21:37)
[2018-08-25] MEDS: POLYETHYLENE GLYCOL 3350 17 GM/Dose PACKET PO SCH (11:12)
--- NOTE | 2018-08-25 11:29 | PN ---
DATE: 08/24/2018 DAILY PROGRESS NOTE SUBJECTIVE: The patient is an 82-year-old female, who is admitted to the [facility] on 08/16/2018 with a non-STEMI. She was taken to the catheterization lab by Dr. 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 The patient tolerated the procedure well and Transitional Care Unit was recommended for physical therapy. The patient's baseline is that she ambulates at home with a walker. She has severe chronic low back pain and leg pain. She is known to have spinal stenosis and is on chronic opioid use for the severe pain. We asked Dr. Liang Hernández consult regarding possibility of peripheral vascular disease causing this pain in the legs; however, he found that dorsal pedal pulses were good and her peripheral arteries were patent. When seen today, the patient is awake, alert, and oriented. She is eating lunch; however, she is complaining of pain in the left hip. Apparently, the patient was feeling well. Had physical therapy yesterday and earlier this morning, but toward the end of the therapy, the pain became quite intense and severe that she had to stop. On physical exam, there was tenderness on palpation over the greater trochanter. I will get an x-ray of this left hip and reevaluate the patient in the morning. Stas Del Rio MD
--- NOTE | 2018-08-25 18:46 | PN ---
DATE: 08/25/2018 LOCATION: The patient is in room 321, bed 1. REASON FOR CONSULTATION: Followup mti-[id number]-miapoam elevation myocardial infarction coronary artery disease. SUBJECTIVE: The patient is lying flat in bed without chest pain, shortness of breath, or palpitation. The patient getting physical therapy, but does not complain any exertional anginal symptoms doing physical therapy. PHYSICAL EXAMINATION: VITAL SIGNS: Blood pressure 105/55, respirations 14, pulse 57, temperature 98. HEENT: Head is normocephalic. Eyes; pupils normal. Conjunctivae slightly pale. NECK: JVP low. Carotids equal. THORAX: AP diameter normal. LUNGS: Clear. CARDIOVASCULAR: S1 and S2. ABDOMEN: Soft. No tenderness. No organomegaly. Bowel sounds are normal. EXTREMITIES: No clubbing. No cyanosis. LABORATORY DATA: Labs were done on 08/20/2018 and they were reported in our previous notes.. Today's sugar is 370. The patient had hip and pelvis x-rays yesterday and no acute findings. The patient complaining of leg pain. DIAGNOSES: Trc-IU-mwgdydetx myocardial infarction with history of multiple stents including left main stent. The patient had cardiac catheterization due to zpo-YG-dkmveowgb myocardial infarction. On this admission, cardiac catheterization revealed totally occluded circumflex. Medical treatment was recommended. PLAN: Continue aspirin 81 mg daily, isosorbide mononitrate 60 daily, atorvastatin 40 daily, metoprolol 25 b.i.d., amlodipine 10 daily, Plavix 75 daily, Protonix 40 daily, lisinopril 5 mg daily. Continue physical therapy for deconditioning. We will follow with you. Sarina Long MD
[2018-08-26] MEDS: oxyCODONE 10 mg Immediate Release Tab PO PRN ×3 (02:08→21:31)
[2018-08-26] MEDS: Pantoprazole 40 mg EC Tab PO SCH (06:41)
[2018-08-26] MEDS: Insulin Reg-HIGH-Coverage SC SCH ×4 (06:41→21:31)
[2018-08-26] MEDS: POLYETHYLENE GLYCOL 3350 17 GM/Dose PACKET PO SCH (09:33)
--- NOTE | 2018-08-26 13:26 | PN ---
DATE: 08/26/2018 LOCATION: Room 321, bed 1. REASON FOR CONSULTATION AND FOLLOWUP: Non-ST segment elevation myocardial infarction and coronary artery, status post cardiac catheterization. SUBJECTIVE: The patient is lying comfortably in bed. Denies any chest pain, shortness of breath, or palpitation. The patient also getting physical therapy and doing physical therapy. She is asymptomatic from cardiac point of view. She is complaining some leg pain in upper thigh area and hip area. PHYSICAL EXAMINATION VITAL SIGNS: Blood pressure 140/72, respirations 20, pulse 65. The patient is afebrile. HEENT: Head is normocephalic. Eyes, pupils normal. Conjunctivae slightly pale. NECK: JVP low. Carotids equal. THORAX: AP diameter normal. LUNGS: Clear. CARDIOVASCULAR: S1 and S2. ABDOMEN: Soft. No tenderness. No organomegaly. EXTREMITIES: No clubbing. No cyanosis. LABORATORY DATA: Labs were done on 08/20/2018 and they were reported in our previous notes. Hip and pelvis x-rays, no acute findings. DIAGNOSES: Doa-UV-yuzplxzzp myocardial infarction with history of multiple stents including left main stent. The patient had cardiac catheterization, which showed totally occluded circumflex and medical treatment was recommended. PLAN: Continue physical therapy. The patient is on isosorbide mononitrate 60 daily, aspirin 81 daily, atorvastatin 40 daily, metoprolol 25 b.i.d., amlodipine 10 daily, Plavix 75 daily, Protonix 40 daily, lisinopril 5 mg daily. We will continue to follow closely. Sarina Long MD
[2018-08-27] MEDS: Pantoprazole 40 mg EC Tab PO SCH (05:03)
[2018-08-27] MEDS: oxyCODONE 10 mg Immediate Release Tab PO PRN ×3 (05:03→19:45)
[2018-08-27] MEDS: Insulin Reg-HIGH-Coverage SC SCH ×4 (06:43→21:54)
[2018-08-27] MEDS: POLYETHYLENE GLYCOL 3350 17 GM/Dose PACKET PO SCH (09:19)
--- NOTE | 2018-08-27 14:11 | PN ---
DATE: 08/26/2018 SUBJECTIVE: The patient was seen this Wednesday evening in Transitional Care Unit, room 321, bed 1. She is awake, alert, laying in bed, comfortable, in no acute distress. She denies any further chest pain. Feels comfortable but does report knee and back pain. I spoke with her at length regarding x-rays that were done in the past, epidurals in the past, and held my suspicion that most of her leg pain is originating from the back. She tells me she has had an extensive workup including x-rays and MRIs, recently received epidurals and she is looking forward to going home on Wednesday. PHYSICAL EXAMINATION: LUNGS: Show good aeration in the right and left. HEART: Regular. Not tachycardic. ABDOMEN: Soft. Mildly overweight and nontender. EXTREMITIES: Show no edema, but the patient jumps to the lightest touch. PLAN: We will continue current level of analgesics, physical therapy, and discharge planning. Edil Del Rio MD
[2018-08-27 17:04] VITALS: RESP 16; TEMP 98; O2SAT 95
[2018-08-27] MEDS ORDERED: oxyCODONE 10 mg Immediate Release Tab PO STA (20:29)
[2018-08-28] MEDS: oxyCODONE 10 mg Immediate Release Tab PO PRN ×2 (02:38→09:54)
[2018-08-28] MEDS: Pantoprazole 40 mg EC Tab PO SCH (05:44)
[2018-08-28] MEDS: Insulin Reg-HIGH-Coverage SC SCH ×2 (06:55→12:30)
[2018-08-28] MEDS ORDERED: oxyCODONE 10 mg Immediate Release Tab PO ONE (10:18)
[2018-08-28] MEDS: POLYETHYLENE GLYCOL 3350 17 GM/Dose PACKET PO SCH (10:46)
[2018-08-28 10:51] VITALS: BP 114/73; PULSE 60
--- NOTE | 2018-08-28 13:24 | PN ---
DATE: 08/28/2018 REASON FOR CONSULTATION: Followup ahw-OQ-vvgnawd elevation myocardial infarction and coronary artery disease. The patient denies any chest pain, shortness of breath, or any palpitation. OBJECTIVE: Not in apparent distress. The patient is complaining of pain in the left hip and knee. PHYSICAL EXAMINATION VITAL SIGNS: Temperature afebrile, heart rate 66 and blood pressure 160/65. HEENT: PERRLA. Extraocular muscles intact. NECK: Supple. No carotid bruit or thyromegaly. CHEST: Clear to auscultation. HEART: S1 and S2 regular. ABDOMEN: Soft. EXTREMITIES: Clubbing and cyanosis negative. LABORATORY DATA: Blood workup as follows: As of 08/20/2018, WBC 6.1, hemoglobin 10, hematocrit 32.2, and platelet count 196. Chemistry shows sodium 131, potassium 4, chloride 105, carbon dioxide 26, anion gap 9, BUN 15, and creatinine 0.5. IMPRESSION AND PLAN: An 82-year-old female with past medical history significant for coronary artery disease status post percutaneous transluminal coronary angioplasty to right coronary artery in the past, status post left main stenting recently at [facility] on 02/11/2018, admitted recently with dpw-VI-jhnreitil myocardial infarction. Cardiac catheterization revealed patent stent in left main, patent stent in left anterior descending artery, patent stent in right coronary artery, circumflex is totally occluded, which in May was mid occluded. Medical treatment recommended. The patient is complaining of hip pain, we will start some ibuprofen to do this. Continue , continue aspirin, continue Plavix, continue amlodipine, continue metoprolol, continue lisinopril. PRU test was done while the patient was in the and the patient was sensitive to aspirin. Last PRU was done and found to be 155, it means the patient is sensitive to aspirin, so we will continue. The patient had an interruption on the Plavix because of epidural, but PRU was done and found to be 155, the patient is sensitive. Continue medical treatment. We will give three doses of ibuprofen for pain, one now and one afternoon and one at night, and after three doses, we will stop it. Possible discharge in a day or two. Thank you Dr. Del Rio for providing us the opportunity in taking care of the patient, Vince Cohen. Sarina Montano MD [facility] # [id number]
--- NOTE | 2018-08-29 08:31 | PN ---
DATE: 08/27/2018 REASON FOR CONSULTATION AND FOLLOWUP: Non-ST segment myocardial infarction, coronary artery disease status post cardiac catheterization and medical treatment. SUBJECTIVE: The patient denies any chest pain, any shortness of breath, any palpitations. PHYSICAL EXAMINATION: As follows. GENERAL: Not in apparent distress. VITAL SIGNS: Temperature afebrile, heart rate 72, blood pressure 110/68. HEENT: PERRLA. Extraocular muscles intact. NECK: Supple. No carotid bruit or thyromegaly. CHEST: Clear to auscultation. HEART: S1 and S2 regular. ABDOMEN: Soft. EXTREMITIES: Clubbing and cyanosis negative. LABORATORY DATA: Blood workup as follows; WBC 6.8, hemoglobin 10.2, hematocrit 32.1, platelet count of 196. Chemistries showed sodium 130, potassium 4, chloride 105, bicarb 26, anion gap of 9, BUN 15, and creatinine 0.5. IMPRESSION: An 82-year-old female with past medical history significant for coronary artery disease status post percutaneous transluminal coronary angioplasty of right coronary artery in the past, history of left main stenting with Impella device [facility] medical treatment recommended. Totally occluded circumflex. RECOMMENDATIONS: Continue physical therapy. Continue Imdir, Continue aspirin. Continue atorvastatin. Continue metoprolol,continue amlodipine. Continue aspirin and Plavix. Upon discharge, the patient was taking Ranexa at home. Thank you Dr. Del Rio for providing us the opportunity to care of this patient, Vince Cohen. Sarina Montano MD MTDD
--- NOTE | 2018-08-29 12:15 | PN ---
DATE: 08/27/2018 SUBJECTIVE: The patient was seen this Wednesday morning at transitional care unit, room 321, bed 1. She is sitting out of bed in the chair, seems to be doing okay, engaging in activities in the unit, going to physical therapy and to the gym. We will continue physical therapy. I spoke with her that tomorrow is her planned day for discharge to home. She is arranged for help with getting home and looking forward to continuing her home medication regimen there. Edil Del Rio MD
--- NOTE | 2018-08-30 01:37 | DS ---
HISTORY OF PRESENT ILLNESS: This is an 82-year-old woman who presented to the emergency room at [facility] with an acute GA, just a few days after epidural injection for chronic low back pain. PAST MEDICAL HISTORY: Significant for coronary artery disease with stents placed several months ago under recent cardiac catheterization showing her left main stent to be open. She is cleared by Cardiology, underwent epidural, had an GA, came to the acute care facility at [facility] and was treated medically, and now comes to the Transitional Care Unit for physical therapy and rehab. This is the discharge summary for patient's stay on TCU. She tried to engage in the activities at the unit, because of her chronic pain and generalized , was not terribly aggressive in her approach towards therapy. She was in bed much of the time, did engage in some of the activities in the unit, was walking in the [place] with a walker. Her pain waxed and waned and she continued to ask for rather large doses of narcotic analgesics as this was a chronic medications for her, it was given at times which I have to reduce the dose, but she complained of rather severe pain tracking the amount of medications that she takes on a regular basis. After 9 days in her transitional care, she was optimized as best we thought she could be, and was ready for her to return home where she was looking forward to resuming her prior medication regimen where she has a little bit more of personal control of her dosing schedule and we will followup with her primary care physician proceed her in a home visit. FINAL DISCHARGE DIAGNOSES: 1. Deconditioning. 2. Acute myocardial infarction. 3. Spinal stenosis. 4. Osteoarthritis. Edil Del Rio MD
== END 2018-08-28 14:29 | disposition home or self-care (01) | DRG 282 ==
LOC: TRCU 19:13
PROVIDERS: ADMIT Internal Medicine; ATTEND Internal Medicine
PROC: F07Z9FZ Gait Training/Functional Ambulation Treatment using Assistive, Adaptive, Supportive or Protective Equipment (ICD-10-PCS; principal; 2018-08-20)
PROC: F07M6ZZ Therapeutic Exercise Treatment of Musculoskeletal System - Whole Body (ICD-10-PCS; 2018-08-20)
PROC: F08Z1ZZ Dressing Techniques Treatment (ICD-10-PCS; 2018-08-20)
PROC: F08Z2ZZ Grooming/Personal Hygiene Treatment (ICD-10-PCS; 2018-08-20)
DX: I21.4 Non-ST elevation (NSTEMI) myocardial infarction (principal); I25.10 Atherosclerotic heart disease of native coronary artery without angina pectoris; E11.65 Type 2 diabetes mellitus with hyperglycemia; G89.29 Other chronic pain; I10 Essential (primary) hypertension; I25.82 Chronic total occlusion of coronary artery; M47.9 Spondylosis, unspecified; M48.00 Spinal stenosis, site unspecified; Z79.02 Long term (current) use of antithrombotics/antiplatelets; Z79.891 Long term (current) use of opiate analgesic; Z95.5 Presence of coronary angioplasty implant and graft; Z96.642 Presence of left artificial hip joint